=== PATIENT | female | born 1985 | race Caucasian/White ===

== ENCOUNTER 2020-09-01 11:25 | Outpatient (REF) | payer OTHER, SELFPAY ==
[2020-09-01 12:06] LABS: MANUAL DIFF FLAG NO
[2020-09-01 12:12] LABS: Basophils Absolute Auto 0.1 X10*3/uL (0.0-0.2); Basophils Percent Auto 0.8 % (0-2); Eosinophils Absolute Auto 0.3 X10*3/uL (0.0-0.4); Hematocrit 44.2 % (37-47); Hemoglobin 13.6 g/dl (12.0-16.0); Imm Gran Abs Auto 0.02 X10*3/uL (0.00-0.03); Imm Gran Pct Auto 0.3 % (0.0-0.4); Lymphocytes Absolute Auto 2.1 X10*3/uL (1.2-4.9); Lymphocytes Percent Auto 27.7 % (20-40); Mean Corpuscular HGB Conc 30.8 g/dl (31.0-35.0); Mean Corpuscular Hemoglobin 23.9 pg (27.0-33.0); Mean Corpuscular Volume 77.8 fL (80-98); Mean Platelet Volume 11.9 fL (9.4-12.3); Monocytes Absolute Auto 0.7 X10*3/uL (0.1-1.2); Monocytes Percent Auto 8.4 % (2-11); Neutrophils Absolute Auto 4.6 X10*3/uL (2.0-8.3); Neutrophils Percent Auto 58.8 % (45-73); Platelet Count 247 X10*3/uL (160-400); Red Blood Count 5.68 X10*6/uL (4.20-5.50); Red Cell Distribution Width 15.1 % (11.0-16.0); White Blood Count 7.7 X10*3/uL (4.8-10.8)
[2020-09-01 12:41] LABS: Alanine Aminotransferase 8 U/L (0-31); Albumin Level 4.4 g/dL (3.5-5.0); Alkaline Phosphatase 60 U/L (39-117); Anion Gap 14 (12-20); Aspartate Amino Transferase 11 U/L (5-31); Bilirubin Total 0.8 mg/dL (0.0-1.0); Blood Urea Nitrogen 11 mg/dL (9-16); Carbon Dioxide 25 mmol/L (22-29); Chloride 104 mmol/L (96-108); Cholesterol 161 mg/dL; Estimated Glomerular Filt Rate > 60; Glucose Fasting 85 mg/dL (60-99); HDL Cholesterol 33 mg/dL; LDL Cholesterol Calculated 115 mg/dl; Potassium 4.4 mmol/L (3.3-5.1); Sodium 139 mmol/L (135-145); Total Protein 7.4 g/dL (6.5-8.0); Triglycerides 66 mg/dL
[2020-09-01 13:03] LABS: TSH reflex Free T4 0.86 uIU/mL (0.32-4.0)
== END 2020-09-01 11:26 | disposition home or self-care (01) ==
LOC: HO.LAB 11:25
PROVIDERS: PCP Internal Medicine; Visit Provider Nurse Practitioner Family
DX: D64.9 Anemia, unspecified (principal)
CPT/HCPCS: 36415; 80053; 80061; 84443; 85025

== ENCOUNTER 2021-11-10 09:41 | Outpatient (REF) | payer OTHER, SELFPAY ==
[2021-11-10 09:54] LABS: MANUAL DIFF FLAG NO
[2021-11-10 10:11] LABS: Basophils Absolute Auto 0.1 X10*3/uL (0.0-0.2); Basophils Percent Auto 0.9 % (0-2); Eosinophils Absolute Auto 0.4 X10*3/uL (0.0-0.4); Eosinophils Percent Auto 5.4 % (0-4); Hematocrit 44.5 % (37.0-47.0); Imm Gran Abs Auto 0.02 X10*3/uL (0.00-0.03); Imm Gran Pct Auto 0.3 % (0.0-0.4); Lymphocytes Absolute Auto 2.2 X10*3/uL (1.2-4.9); Lymphocytes Percent Auto 33.3 % (20-40); Mean Corpuscular HGB Conc 31.5 g/dl (31.0-35.0); Mean Corpuscular Hemoglobin 24.1 pg (27.0-33.0); Mean Corpuscular Volume 76.7 fL (80.0-98.0); Mean Platelet Volume 11.1 fL (9.4-12.3); Monocytes Absolute Auto 0.6 X10*3/uL (0.1-1.2); Monocytes Percent Auto 9.4 % (2-11); Neutrophils Absolute Auto 3.4 x10*3/uL (2.0-8.3); Neutrophils Percent Auto 50.7 % (45-73); Platelet Count 205 X10*3/uL (160-400); Red Cell Distribution Width 15.2 % (11.0-16.0); White Blood Count 6.6 X10*3/uL (4.8-10.8)
[2021-11-10 10:40] LABS: Alanine Aminotransferase 20 U/L (0-31); Albumin Level 4.2 g/dL (3.5-5.0); Alkaline Phosphatase 58 U/L (39-117); Anion Gap 11 (12-20); Aspartate Amino Transferase 15 U/L (5-31); Bilirubin Total 1.3 mg/dL (0.0-1.0); Blood Urea Nitrogen 13 mg/dL (9-16); Calcium 10.3 mg/dL (8.4-10.2); Carbon Dioxide 26 mmol/L (22-29); Chloride 105 mmol/L (96-108); Cholesterol 166 mg/dL; Estimated Glomerular Filt Rate > 60; Glucose Fasting 88 mg/dL (60-99); HDL Cholesterol 34 mg/dL; Iron 97 mcg/dL (30-160); LDL Cholesterol Calculated 115 mg/dl; Percent Iron Saturation 26 % (15-50); Potassium 4.9 mmol/L (3.3-5.1); Sodium 137 mmol/L (135-145); Total Iron Binding Capacity 367 mcg/dL (228-428); Total Protein 7.4 g/dL (6.5-8.0); Triglycerides 86 mg/dL; Unsaturated Iron Binding 270 ug/dL
== END 2021-11-10 09:42 | disposition home or self-care (01) ==
LOC: HO.LAB 09:41
PROVIDERS: PCP Internal Medicine; Visit Provider Internal Medicine
DX: Z00.00 Encounter for general adult medical examination without abnormal findings (principal); D64.9 Anemia, unspecified
CPT/HCPCS: 36415; 80053; 80061; 83540; 85025

== ENCOUNTER 2022-10-28 08:53 | Outpatient (REF) | payer OTHER, SELFPAY ==
[2022-10-28 09:04] LABS: MANUAL DIFF FLAG NO
[2022-10-28 09:06] LABS: Basophils Absolute Auto 0.1 X10*3/uL (0.0-0.2); Basophils Percent Auto 0.7 % (0-2); Eosinophils Absolute Auto 0.4 X10*3/uL (0.0-0.4); Eosinophils Percent Auto 4.5 % (0-4); Hematocrit 43.5 % (37.0-47.0); Hemoglobin 13.6 g/dl (12.0-16.0); Imm Gran Abs Auto 0.05 X10*3/uL (0.00-0.03); Imm Gran Pct Auto 0.5 % (0.0-0.4); Lymphocytes Absolute Auto 2.8 X10*3/uL (1.2-4.9); Lymphocytes Percent Auto 29.4 % (20-40); Mean Corpuscular HGB Conc 31.3 g/dl (31.0-35.0); Mean Corpuscular Hemoglobin 23.9 pg (27.0-33.0); Mean Corpuscular Volume 76.6 fL (80.0-98.0); Mean Platelet Volume 10.7 fL (9.4-12.3); Monocytes Percent Auto 10.2 % (2-11); Neutrophils Absolute Auto 5.2 x10*3/uL (2.0-8.3); Neutrophils Percent Auto 54.7 % (45-73); Platelet Count 194 X10*3/uL (160-400); Red Blood Count 5.68 X10*6/uL (4.20-5.50); Red Cell Distribution Width 15.2 % (11.0-16.0); White Blood Count 9.6 X10*3/uL (4.8-10.8)
[2022-10-28 09:40] LABS: Alanine Aminotransferase 13 U/L (0-31); Albumin Level 4.1 g/dL (3.5-5.0); Alkaline Phosphatase 55 U/L (39-117); Anion Gap 10 (12-20); Aspartate Amino Transferase 13 U/L (5-31); Bilirubin Total 1.2 mg/dL (0.0-1.0); Blood Urea Nitrogen 10 mg/dL (9-16); Calcium 9.2 mg/dL (8.4-10.2); Carbon Dioxide 27 mmol/L (22-29); Chloride 108 mmol/L (96-108); Cholesterol 164 mg/dL; Estimated Glomerular Filt Rate > 60; Glucose Fasting 91 mg/dL (60-99); HDL Cholesterol 38 mg/dL; LDL Cholesterol Calculated 111 mg/dl; Potassium 4.6 mmol/L (3.3-5.1); Sodium 140 mmol/L (135-145); Total Protein 6.9 g/dL (6.5-8.0); Triglycerides 77 mg/dL
[2022-10-28 10:13] LABS: Folate 15.1 ng/mL (> or = 4.0); Vitamin B12 428 pg/mL (200-900); Vitamin D 25-OH Total 27.3 ng/mL (>30)
[2022-10-30 15:54] LABS: Calcium (PTHI) 9.1 mg/dL (8.6-10.2); PTHI 49 pg/mL (16-77)
== END 2022-10-28 08:54 | disposition home or self-care (01) ==
LOC: HO.LAB 08:53
PROVIDERS: PCP Internal Medicine; Visit Provider Internal Medicine
DX: Z00.00 Encounter for general adult medical examination without abnormal findings (principal); E55.9 Vitamin D deficiency, unspecified; E83.52 Hypercalcemia; D64.9 Anemia, unspecified; E53.8 Deficiency of other specified B group vitamins
CPT/HCPCS: 36415; 80053; 80061; 82306; 82607; 82746; 83970; 85025

== ENCOUNTER 2022-11-09 23:26 | Emergency (ER) | payer OTHER, SELFPAY ==
[2022-11-09 23:35] VITALS: BP 117/71; PULSE 83; RESP 20; TEMP 36.3; O2SAT 100; BMI 34.8
[2022-11-09 23:51] VITALS: BP 122/79; PULSE 79; RESP 16; TEMP 37; O2SAT 100
--- NOTE | 2022-11-09 23:51 | ECG_ITS ---
Test Reason : WEAKNESS Blood Pressure : / mmHG Vent. Rate : 070 BPM Atrial Rate : 070 BPM P-R Int : 154 ms QRS Dur : 084 ms QT Int : 376 ms P-R-T Axes : 032 057 033 degrees QTc Int : 406 ms Sinus rhythm with Premature atrial complexes Otherwise normal ECG When compared to the previous EKG of Premature atrial complexes are now Present Referred By: Generic ED Physician Electronically Signed By:SUSSY SANCHEZ MD
[2022-11-10 00:46] LABS: Basophils Absolute Auto 0.1 X10*3/uL (0.0-0.2); Basophils Percent Auto 0.7 % (0-2); Eosinophils Absolute Auto 0.3 X10*3/uL (0.0-0.4); Eosinophils Percent Auto 2.7 % (0-4); Hematocrit 42.1 % (37.0-47.0); Hemoglobin 13.3 g/dl (12.0-16.0); Imm Gran Abs Auto 0.03 X10*3/uL (0.00-0.03); Imm Gran Pct Auto 0.3 % (0.0-0.4); Lymphocytes Absolute Auto 1.7 X10*3/uL (1.2-4.9); Lymphocytes Percent Auto 16.4 % (20-40); MANUAL DIFF FLAG NO; Mean Corpuscular HGB Conc 31.6 g/dl (31.0-35.0); Mean Corpuscular Hemoglobin 24.1 pg (27.0-33.0); Mean Corpuscular Volume 76.3 fL (80.0-98.0); Mean Platelet Volume 11.7 fL (9.4-12.3); Monocytes Absolute Auto 0.8 X10*3/uL (0.1-1.2); Monocytes Percent Auto 7.8 % (2-11); Neutrophils Absolute Auto 7.6 x10*3/uL (2.0-8.3); Neutrophils Percent Auto 72.1 % (45-73); Platelet Count 222 X10*3/uL (160-400); Red Blood Count 5.52 X10*6/uL (4.20-5.50); Red Cell Distribution Width 14.9 % (11.0-16.0); White Blood Count 10.6 X10*3/uL (4.8-10.8)
[2022-11-10 01:00] LABS: Anion Gap 10 (12-20); Blood Urea Nitrogen 15 mg/dL (9-16); Calcium 9.7 mg/dL (8.4-10.2); Carbon Dioxide 26 mmol/L (22-29); Chloride 107 mmol/L (96-108); Creatinine Clr Calc Pharmacy 102.3; Estimated Glomerular Filt Rate > 60; Glucose Random 77 mg/dL (60-115); Potassium 4.1 mmol/L (3.3-5.1); Sodium 139 mmol/L (135-145)
[2022-11-10 01:10] LABS: Troponin-I High Sensitivity < 2.7 ng/L (<3.5-17.0)
--- NOTE | 2022-11-10 01:25 | ED_ITS ---
HPI - General Adult General Chief complaint: Nausea/Vomiting/Diarrhea Stated complaint: Low Blood Sugar/ Dizziness Time Seen by Provider: 11/10/22 01:14 Source: patient Mode of arrival: ambulatory Limitations: no limitations History of Present Illness HPI narrative: 37-year-old female came in for evaluation for vomiting, headache, dizziness. Patient had a history of similar symptoms since she was age of 17 no clear predisposing factor to trigger patient's symptoms Patient had Feeling dizzy, become anxious, headache then she throw up, patient checked her blood sugar was 77 patient is nondiabetic and that is why patient came to the hospital for further evaluation. Related Data Previous Rx's Medication Instructions Recorded escitalopram oxalate 10 mg tablet 10 mg PO DAILY 90 days #90 tabs 04/07/20 hydroxyzine pamoate 25 mg capsule 25 mg PO Q8H 30 days #90 caps 11/13/20 Allergies Allergy/AdvReac Type Severity Reaction Status Date / Time aspirin [ASPIRIN] Allergy Intermediate THROAT Verified 11/09/22 23:38 CLOSES, RASH ibuprofen [From MOTRIN] Allergy Intermediate THROAT Verified 11/09/22 23:38 CLOSES, RASH mushroom [MUSHROOM] Allergy Intermediate rash Verified 11/09/22 23:38 seafood Allergy Intermediate throat/facial Verified 11/09/22 23:38 swelling-difficulty breathing tramadol Allergy Intermediate Rash Verified 11/09/22 23:38 Review of Systems Review of Systems: All other systems are reviewed and are negative Constitutional: Reports as per HPI and Reports no additional constitutional complaints Eyes: Reports as per HPI and Reports no additional eye complaints Reports system reviewed and no additional complaints, except as documented Cardiovascular: Reports as per HPI and Reports no additional cardiovascular complaints Respiratory: Reports as per HPI and Reports no additional respiratory complaints Gastrointestinal: Reports as per HPI and Reports no additional gastrointestinal complaints Genitourinary: Reports no additional female genitourinary complaints Musculoskeletal: Reports no additional musculoskeletal complaints Skin/Breast: Reports system reviewed and no additional complaints, except as docu Psychiatric: Reports no additional psychiatric complaints Endocrine: Reports no additional endocrine complaints Hematologic/Lymphatic: Reports no additional hematologic/lymphatic complaints Allergic/Immunologic: Reports no additional allergic/immunologic complaints Reports system reviewed and no additional complaints, except as documented and Reports Abnormal speech present PMFSH Past Medical History Medical History Allergic rhinitis Anemia Anxiety and depression Depression with anxiety STEVE (generalized anxiety disorder) Insomnia Mild recurrent major depression Obese Physical exam Surgical History Hx laparoscopic cholecystectomy Previous section Family History Family History Father Arthritis History of bowel disorder Hypertension Asthma Mother Hemorrhoids Hypertension Asthma Maternal Grandfather Asthma Diabetes Paternal Grandmother Asthma Diabetes Fibromyalgia Paternal Aunt Migraine Brother In good health Sister In good health Social History Social History Housing: Apartment Alcohol intake: former Patient Tobacco Use Status: Current everyday Tobacco user Tobacco use type: Cigarette Cigarettes Per Day: 6 e-Cigarette/Vaping Use: Never Used Second Hand Smoke Exposure: No Advance Directives: No Advance Directives Information Provided: No service: No Current occupational status: employed Current occupational exposures/hazards: No Cognitive needs: No Hearing needs: No Vision needs: Yes Physical Exam ED Vital Signs: Vital Signs - 24 hr 11/09/22 23:35 Temperature 97.4 F Pulse Rate 83 Respiratory Rate 20 Blood Pressure 117/71 Pulse Oximetry 100 Oxygen Delivery Method Room Air BMI result Body Mass Index 34.8 Vital signs have been reviewed as appeared to be correct. Blood pressure normal. Heart rate normal. Respiration rate normal. Temperature normal. Oxyg en saturation normal. Appearance: Alert. Oriented X3. No acute distress. Head: Normal external exam. Normocephalic. Atraumatic. No Vang signs noted. No raccoon eyes noted Eyes: PERRLA. EOMI. Conjunctiva and sclera normal. Eyelids normal. ENT: TM's Normal. Pharynx normal. Uvula midline. Moist mucous membranes. No trismus noted. No drooling noted. No muffled voice noted. Neck: Normal inspection. Neck supple. FROM. No adenopathy. Thyroid Normal. No meningeal signs. No neck mass noted. CVS: Normal heart rate and rhythm. Heart sound normal. No murmurs noted. Pulses normal throughout. Respiratory: No respiratory distress. Painless inspiration. Breath sounds nor mal. No wheezes/rales/rhonchi noted. Chest nontender. No accessory muscle usage noted or decreased air movement noted. Abdomen: Soft and nontender. Bowel sounds normal in all 4 quadrants. No distent ion noted. No organomegaly noted. No visible injury noted. Back: No CVA tenderness. Full range of motion noted. Skin: Skin warm and dry. Normal skin color. Normal skin turgor. No rashes/lesions/lacerations noted. Extremities: No lower extremity edema. Extremities exhibit normal range of mot ion. Extremities nontender. Neuro: Oriented X 3. Cranial nerve exam: II-XII are grossly intact No motor deficit. No sensory deficit. Reflexes normal. Course Course Course Narrative: 37-year-old female came in after having vomiting and hypoglycemia at home, patient now feels better, no headache, no dizziness, no nausea, no vomiting, able to tolerate any p.o. intake in the emergency department. Medical Decision Making Differential Diagnosis Differential Diagnoses: The differential diagnosis associated with the presentation includes (Vomiting, gastritis, food poisoning, gastroenteritis, dehydration, hypoglycemia, electrolyte abnormalities, dehydration.) Admission/Observation Consideration of admission/observation: Escalation of care including admissio n/observation considered Lab Data MDM Lab Attestation statement: I reviewed the patient's lab results. 11/10/22 00:40 11/10/22 00:40 Labs: Lab Results 11/10/22 11/10/22 11/10/22 Range/Units 00:40 00:40 00:40 WBC 10.6 (4.8-10.8) X10*3/uL RBC 5.52 H (4.20-5.50) X10*6/uL Hgb 13.3 (12.0-16.0) g/dl Hct 42.1 (37.0-47.0) % MCV 76.3 L (80.0-98.0) fL MCH 24.1 L (27.0-33.0) pg MCHC 31.6 (31.0-35.0) g/dl RDW 14.9 (11.0-16.0) % Plt Count 222 (160-400) X10*3/uL MPV 11.7 (9.4-12.3) fL Immature Gran % (Auto) 0.3 (0.0-0.4) % Neut % (Auto) 72.1 (45-73) % Lymph % (Auto) 16.4 L (20-40) % [place] % (Auto) 7.8 (2-11) % Eos % (Auto) 2.7 (0-4) % Baso % (Auto) 0.7 (0-2) % Lymph # (Auto) 1.7 (1.2-4.9) X10*3/uL [place] # (Auto) 0.8 (0.1-1.2) X10*3/uL Eos # (Auto) 0.3 (0.0-0.4) X10*3/uL Baso # (Auto) 0.1 (0.0-0.2) X10*3/uL Abs Immat Gran (auto) 0.03 (0.00-0.03) X10*3/uL Absolute Neuts (auto) 7.6 (2.0-8.3) x10*3/uL Absolute Nucleated RBC 0.000 (0.0-0.012) X10*3/uL Nucleated RBC % (auto) 0.0 (0.0-0.2) /100WBC Sodium 139 (135-145) mmol/L Potassium 4.1 (3.3-5.1) mmol/L Chloride 107 (96-108) mmol/L Carbon Dioxide 26 (22-29) mmol/L Anion Gap 10 L (12-20) BUN 15 (9-16) mg/dL Creatinine 0.79 (0.5-1.4) mg/dL Estim Creat Clear Calc 102.3 Estimated GFR > 60 Random Glucose 77 (60-115) mg/dL Calcium 9.7 (8.4-10.2) mg/dL Troponin I High Sens < 2.7 (<3.5-17.0) ng/L Discharge Plan Discharge Clinical Impression: Anxiety, Vomiting Patient Disposition: Home, Self-Care Instructions: Anxiety (ED) Prescriptions: No Action escitalopram oxalate 10 mg tablet 10 mg PO DAILY 90 Days Qty: 90 3RF hydroxyzine pamoate 25 mg capsule 25 mg PO Q8H 30 Days Qty: 90 2RF Referrals: Ellie Palma MD [Primary Care Provider] -
[2022-11-10 01:49] LABS: HCG Quantitative < 2 mIU/mL
[2022-11-10 06:45] LABS: Glucose, Whole Blood 101 mg/dL (60-115)
== END 2022-11-10 03:01 | disposition home or self-care (01) ==
PROVIDERS: Emergency Provider Emergency Medicine; PCP Internal Medicine
DX: F41.9 Anxiety disorder, unspecified (principal); R11.10 Vomiting, unspecified
CPT/HCPCS: 36415; 80048; 82947; 84484; 84702; 85025; 93005; 99284; 99285

== ENCOUNTER 2023-08-09 13:12 | Outpatient (AMB) | payer OTHER, SELFPAY ==
[2023-08-09 13:14] VITALS: BP 130/80; BMI 31.0
--- NOTE | 2023-08-09 13:14 | A.OFFPC_ITS ---
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 Accompanied by: Self / Same As Patient Allergies aspirin [ASPIRIN] Allergy (Intermediate, Verified 08/09/23 13:28) THROAT CLOSES, RASH ibuprofen [From MOTRIN] Allergy (Intermediate, Verified 08/09/23 13:28) THROAT CLOSES, RASH mushroom [MUSHROOM] Allergy (Intermediate, Verified 08/09/23 13:28) rash seafood Allergy (Intermediate, Verified 08/09/23 13:28) throat/facial swelling-difficulty breathing tramadol Allergy (Intermediate, Verified 08/09/23 13:28) Rash Medication List - Last Reconciled 08/09/23 by Ellie Desouza MD hydroxyzine pamoate 25 mg PO Q8H 30 days Tobacco use date assessed: 08/09/23 Dental Screening Dental Screen Date: 08/09/23 Did you have a dental visit in the last 12 months?: No Did you have a dental problem in the last 6 months where you did not have access to dental care?: No Was dental information given to patient?: Patient has dentist HPI HPI Comments History of Present Illness Details This is a 37-year-old female with mild recurrent major depression, anxiety and obesity that comes today complaining of blurry vision that has been present for about 6 weeks in which her vision is blurry and after 18:00 she gets blind. Anxiety stable with hydroxyzine as needed. Depression is in remission. She is obese with a BMI of 31 and was advised to diet and exercise to reach BMI goal less than 30. [facility] Medical History (Updated 08/09/23 @ 13:32 by Ellie Desouza MD) STEVE (generalized anxiety disorder) Mild recurrent major depression Physical exam Anxiety and depression Anemia Obese Allergic rhinitis Insomnia Depression with anxiety Surgical History Hx laparoscopic cholecystectomy Previous section Family History Father Arthritis History of bowel disorder Hypertension Asthma Mother Hemorrhoids Hypertension Asthma Maternal Grandfather Asthma Diabetes Paternal Grandmother Asthma Diabetes Fibromyalgia Paternal Aunt Migraine Brother In good health Sister In good health Social History Housing: Apartment Alcohol intake: never Patient Tobacco Use Status: Current everyday Tobacco user Tobacco use type: Cigarette Cigarettes Per Day: 6 e-Cigarette/Vaping Use: Never Used Second Hand Smoke Exposure: No service: No Current occupational status: employed Current occupational exposures/hazards: No Cognitive needs: No Hearing needs: No Vision needs: Yes Questionnaire Thrive Questionnaire Date Thrive assessed: 06/21/22 STEVE-7 AMB Questionnaire STEVE-7 Date STEVE - 7 assessed: 11/02/22 Source: Developed by Drs. Reynaldo Rolon, Dianelys Lopez, Denzel Ramirez and colleagues, with an educational williams from [employer]. Review of Systems Const All systems reviewed & are unremarkable except as noted in HPI and below Eyes Reports no additional complaints, Denies change in vision and Denies other visual disturbances Card Denies chest pain at rest, Denies chest pain with activity, Denies edema, Denies irregular heart rhythm, Denies claudication, Denies dyspnea, Denies dyspnea on exertion, Denies orthopnea, Denies paroxysmal nocturnal dyspnea and Denies slow heart rate Resp Denies cough, Denies dyspnea and Denies dyspnea on exertion GI Denies abdominal pain, Denies change in bowel habits, Denies excessive flatus, Denies nausea and Denies vomiting Denies urinary incontinence, Denies urinary hesitancy and Denies urinary urgency Musc Denies abnormal gait, Denies atrophy, Denies deformity and Denies limited range of motion Skin/Breast Denies bleeding lesions, Denies changing lesions and Denies rash Neuro Denies abnormal gait, Denies behavioral changes and Denies lack of coordination Psych Denies behavioral changes Physical exam (Primary Care) Vital Signs: Last Vital Signs BP 130/80 08/09/23 13:14 BMI result Body Mass Index 31.0 Tobacco/Smoking Status: Tobacco use Status Tobacco use date assessed 08/09/23 08/09/23 13:23 Patient Tobacco Use Status Current everyday Tobacco 08/09/23 13:23 Tobacco use type Cigarette 08/09/23 13:23 e-Cigarette/Vaping Use Never Used 08/09/23 13:23 Thrive Assessment: Date of Thrive Assessment Date Thrive assessed 06/21/22 08/09/23 13:23 Eyes General: appearance normal, both eyes and all related structures Eyelids: Yes eyelids normal Conjunctivae: conjunctivae normal Neck Neck: Yes normal visual inspection and Yes supple Resp Effort & Inspection: normal respiratory effort Auscultation: clear to auscultation bilaterally Cardio Jugular venous distension: no JVD Rate: regular rate Rhythm: regular rhythm Heart sounds: S1 normal heart sound present and S2 normal heart sound present Extrem General: Yes full ROM Psych Appearance: grossly normal Assessment and Plan Assessment & Plan (1) Mild recurrent major depression: Code(s): F33.0 - Major depressive disorder, recurrent, mild Plan: In remission. (2) STEVE (generalized anxiety disorder): Code(s): F41.1 - Generalized anxiety disorder Plan: Continue hydroxyzine as needed. (3) Obese: Code(s): E66.9 - Obesity, unspecified Qualifiers: Obesity type: due to excess calories Obesity classification: adult class 1 (BMI 30 - 34.9) Serious obesity comorbidity presence: without serious comorbidity Body mass index: BMI 34.0-34.9 Qualified Code(s): E66.09 - Other obesity due to excess calories; Z68.34 - Body mass index [BMI] 34.0-34.9, adult Plan: Start diet and exercise. BMI goal is less than 30. (4) Blurry vision: Code(s): H53.8 - Other visual disturbances Plan: Referred to Ophthalmology. Orders: Referrals Ophthalmology Referral H53.8 - Other visual disturbances Coding Level of Care Code Est Pt Level 4 (31495) Diagnoses Mild recurrent major depression F33.0 STEVE (generalized anxiety disorder) F41.1 Class 1 obesity due to excess calories without serious comorbidity with body mass index (BMI) of 34.0 to 34.9 in adult E66.09; Z68.34 Obesity type: due to excess calories Obesity classification: adult class 1 (BMI 30 - 34.9) Serious obesity comorbidity presence: without serious comorbidity Body mass index: BMI 34.0-34.9 Blurry vision H53.8 Time Spent (min) 21
== END 2023-08-09 13:38 | disposition home or self-care (01) ==
PROVIDERS: PCP Internal Medicine; Visit Provider Internal Medicine
DX: H53.8 Other visual disturbances (principal); F33.0 Major depressive disorder, recurrent, mild; E66.09 Other obesity due to excess calories; Z68.34 Body mass index [BMI] 34.0-34.9, adult
CPT/HCPCS: 99214

== ENCOUNTER 2023-11-21 12:43 | Emergency (ER) | payer OTHER, SELFPAY ==
--- NOTE | ~2023-11-21 | XR_ITS ---
EXAMINATION: XR ELBOW, LEFT CLINICAL INFORMATION: Left elbow pain. Laceration. Status post fall. COMPARISON: None available. TECHNIQUE: AP, lateral, and oblique views of the left elbow. FINDINGS: Bone mineralization is normal. No fracture or malalignment. Joint spaces well-preserved. No appreciable effusion. Skin wound is suspected at the dorsal margin of the olecranon. No subcutaneous gas or radiodense foreign bodies. XR/XR elbow LT min 3V IMPRESSION: 1. No acute osseous findings at the left elbow. 2. Skin wound at the dorsal margin of the olecranon. No subcutaneous gas or radiodense foreign bodies.
[2023-11-21 13:37] VITALS: BP 116/73; PULSE 78; RESP 16; TEMP 36.7; O2SAT 98; BMI 29.2
--- NOTE | 2023-11-21 13:37 | ED.GENADULT ---
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 Tetanus up-to-date. Denies injury to other area. Denies numbness, tingling Related Data Previous Rx's ?Medication ?Instructions ?Recorded hydroxyzine pamoate 25 mg capsule 25 mg PO Q8H 30 days #90 caps 11/13/20 Allergies Allergy/AdvReac Type Severity Reaction Status Date / Time aspirin [ASPIRIN] Allergy Intermediate THROAT Verified 11/21/23 13:37 CLOSES, RASH ibuprofen [From MOTRIN] Allergy Intermediate THROAT Verified 11/21/23 13:37 CLOSES, RASH mushroom [MUSHROOM] Allergy Intermediate rash Verified 11/21/23 13:37 seafood Allergy Intermediate throat/facial Verified 11/21/23 13:37 swelling-difficulty breathing tramadol Allergy Intermediate Rash Verified 11/21/23 13:37 Review of Systems Review of Systems: Constitutional: No Fever, No Chills ENT/Mouth: No Ear Pain, No Nasal Congestion, No sore throat, No Rhinorrhea, No Swallowing Difficulty Cardiovascular: No Chest Pain, No SOB Respiratory: No Cough Gastrointestinal: No Nausea, No Vomiting, No Abdominal pain Musculoskeletal: + joint pain, No Myalgias, No Joint Swelling Skin: +Skin Lesions, No rash Neuro: No Weakness, No Numbness, No Paresthesias Yes all other systems are reviewed and are negative Constitutional: Constitutional: Reports as per [facility] Past Medical History Attestation statement: The following information was validated with the patient. Source: old records reviewed Medical History STEVE (generalized anxiety disorder) Mild recurrent major depression Physical exam Anxiety and depression Anemia Obese Allergic rhinitis Insomnia Depression with anxiety Surgical History Hx laparoscopic cholecystectomy Previous section Family History Family History Father Arthritis History of bowel disorder Hypertension Asthma Mother Hemorrhoids Hypertension Asthma Maternal Grandfather Asthma Diabetes Paternal Grandmother Asthma Diabetes Fibromyalgia Paternal Aunt Migraine Brother In good health Sister In good health Social History Social History Housing: Apartment Alcohol intake: never Patient Tobacco Use Status: Current everyday Tobacco user Tobacco use type: Cigarette Cigarettes Per Day: 6 e-Cigarette/Vaping Use: Never Used Second Hand Smoke Exposure: No Advance Directives: No Advance Directives Information Provided: No service: No Current occupational status: employed Current occupational exposures/hazards: No Cognitive needs: No Hearing needs: No Vision needs: Yes Physical Exam ED Vital Signs: Vital Signs - 24 hr 11/21/23 13:37 11/21/23 16:00 Temperature 98.1 F 98.8 F Pulse Rate 78 85 Respiratory Rate 16 Blood Pressure 116/73 116/81 Pulse Oximetry 98 100 Oxygen Delivery Method Room Air Room Air BMI result Body Mass Index 29.2 Const General: cooperative, healthy appearing and no acute distress Orientation/consciousness: patient oriented x3 Limitations: no limitations HENMT Head: Yes normal to inspection and Yes atraumatic Ears: hearing grossly normal bilaterally General nose exam: Normal external nose present Face and sinus: Yes normal facial exam Eyes General: appearance normal, both eyes and all related structures EOM: EOMs intact bilaterally Neck Neck: Yes normal visual inspection and Yes no meningeal signs Resp Effort & Inspection: normal respiratory effort and no respiratory distress Cardio Rate: regular rate General: Yes no CVA tenderness Back/Spine/Pelvis Back: no CVA tenderness Skin Rashes: no rashes Wounds: no wounds Neuro General: patient oriented x3, tone normal and no meningeal signs Cranial nerves: Yes CN's II-XII intact bilaterally Gait exam (Neuro): Normal gait present Extrem Other: Left elbow mildly tender to palpation. No erythema/warmth or ecchymosis. 2 small superficial lacerations noted to left elbow measuring 1.5 cm and 1 cm. Bleeding controlled. Full flexion limited secondary to pain. Pronation and supination intact. Neurovascular intact distally Course Course Course Narrative: This is a rapid medical exam performed by Adan Gardiner NP: Additional HPI, ROS, PE not included below will be deferred to primary provider. Patient is a 38-year-old female presenting to the ED with complaint of laceration to left elbow. Was cleaning her house and struck elbow on something while moving her arm. Tdap up to date. 2cm laceration over olecranon. Plan: xray, needs sutures XR elbow LT min 3V IMPRESSION: 1. No acute osseous findings at the left elbow. 2. Skin wound at the dorsal margin of the olecranon. No subcutaneous gas or radiodense foreign bodies. Results discussed with patient including worrisome signs and symptoms and strict return precautions, and when to return to the emergency department. They verbalized understanding and feel safe for discharge at this time. Medications Administered Discontinued Medications Generic Name Dose Route Start Last Admin Trade Name Freq PRN Reason Stop Dose Admin Lidocaine HCl 5 ml 11/21/23 16:57 11/21/23 17:06 Lidocaine Hcl 1 % Mpf 5 Ml Vial INFILTRATI 11/21/23 16:58 5 ml ONCE ONE Administration Procedures Laceration Laceration 1: Site: upper extremity (Left elbow) Size (cm): 1.5 Description: linear and irregular Depth: simple, single layer Local Anesthetic: lidocaine 1% Amount of anesthesia used (mL): 1 Pre-repair: wound explored Skin layer closed with: nylon Size (cm): 3-0 Number of sutures: 3 Technique: simple, interrupted Laceration 2: Site: upper extremity (Left elbow) Size (cm): 1 Description: linear Depth: simple, single layer Local Anesthetic: lidocaine 1% Amount of anesthesia used (mL): 0.5 Pre-repair: wound explored Skin layer closed with: nylon Size (cm): 3-0 Number of sutures: 1 Technique: simple, interrupted Medical Decision Making Medical Decision Making MDM Narrative: 38-year-old female with past medical history of anemia, insomnia, depression, anxiety, presenting to the ED complaining of laceration to left elbow s/p hitting on coffee mug while cleaning house [employer]. On exam vital signs stable, NAD, nontoxic appearing, physical exam as noted above. Concern for fracture and laceration various contusion. Low suspicion for dislocation. No evidence of retained foreign body or cellulitis Plan: X-ray, suture wound Please refer to course for remaining clinical decision making, interpretation of labs/imaging results, and discussions with consultants and/or family members. Differential Diagnosis Differential Diagnoses: The differential diagnosis associated with the presentation includes As above Radiology Impression Discussion of test interpretation with radiology: I have reviewed the radiologist's reading. External Record Review External record reviewed: Inpatient record, Office record, Outpatient record, Prior outpatient labs, Prior outpatient radiology, Primary care record and Outside ED record Tests considered The following testing was considered but not selected: As above Prescription Management I considered prescription management with: Antibiotic (Not needed at this time) Discharge Plan Discharge Clinical Impression: Laceration Patient Disposition: Home, Self-Care Instructions: Laceration (DC) Additional Instructions: Your wounds were repaired today in the emergency department. Keep dry and clean. You need to return to any emergency department, urgent care, or your PCPs office in 7-10 days for suture removal Apply bacitracin and or Neosporin daily Once sutures are removed apply anti scar cream like Mederma If area begins look infected, is red, there is drainage, streaking, or you have fever please return to the emergency department Prescriptions: No Action hydroxyzine pamoate 25 mg capsule 25 mg PO Q8H 30 Days Qty: 90 2RF Referrals: ED Physician,Generic [Physician] - 1 week (For suture removal) Ellie Palma MD [Primary Care Provider] - Print Language: [place] Islander
[2023-11-21 16:00] VITALS: BP 116/81; PULSE 85; TEMP 37.1; O2SAT 100
[2023-11-21] MEDS: Lidocaine HCl 1 % MPF 5 ML VIAL INFILTRATI (17:06)
[2023-11-21 18:00] VITALS: BP 97/61; PULSE 71; TEMP 36.5; O2SAT 100
[2023-11-21 18:35] VITALS: BP 97/61; PULSE 71; RESP 18; TEMP 36.5; O2SAT 100
== END 2023-11-21 18:36 | disposition home or self-care (01) ==
PROVIDERS: Emergency Provider Internal Medicine; PCP Internal Medicine
DX: S51.012A Laceration without foreign body of left elbow, initial encounter (principal); W22.8XXA Striking against or struck by other objects, initial encounter; Y93.89 Activity, other specified; Y92.9 Unspecified place or not applicable; Y99.9 Unspecified external cause status
CPT/HCPCS: 12001; 73080; 99283; 99284

== ENCOUNTER 2023-11-28 14:18 | Outpatient (AMB) | payer OTHER, SELFPAY ==
--- NOTE | 2023-11-28 14:20 | MHC.PC.OV ---
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 Accompanied by: Self / Same As Patient Allergies aspirin [ASPIRIN] Allergy (Intermediate, Verified 11/28/23 14:34) THROAT CLOSES, RASH ibuprofen [From MOTRIN] Allergy (Intermediate, Verified 11/28/23 14:34) THROAT CLOSES, RASH mushroom [MUSHROOM] Allergy (Intermediate, Verified 11/28/23 14:34) rash seafood Allergy (Intermediate, Verified 11/28/23 14:34) throat/facial swelling-difficulty breathing tramadol Allergy (Intermediate, Verified 11/28/23 14:34) Rash Medication List - Last Reconciled 11/28/23 by Ellie Desouza MD bacitracin 1 appl topical BID hydroxyzine pamoate 25 mg PO Q8H 30 days Tobacco use date assessed: 08/09/23 Dental Screening Dental Screen Date: 08/09/23 HPI HPI Comments History of Present Illness Details This is a 38-year-old female with mild major depression in remission and anxiety that comes today for suture removal. She had a glass cup that broke in her left elbow and went to ER due to this matter. Had 4 sutures that were successfully removed today. Anxiety well controlled with hydroxyzine as needed. She has a smoker and was advised to quit. Declines nicotine patch. [facility] Medical History STEVE (generalized anxiety disorder) Mild recurrent major depression Physical exam Anxiety and depression Anemia Obese Allergic rhinitis Insomnia Depression with anxiety Surgical History Hx laparoscopic cholecystectomy Previous section Family History Father Arthritis History of bowel disorder Hypertension Asthma Mother Hemorrhoids Hypertension Asthma Maternal Grandfather Asthma Diabetes Paternal Grandmother Asthma Diabetes Fibromyalgia Paternal Aunt Migraine Brother In good health Sister In good health Social History Housing: Apartment Alcohol intake: never Patient Tobacco Use Status: Current everyday Tobacco user Tobacco use type: Cigarette Cigarettes Per Day: 6 e-Cigarette/Vaping Use: Never Used Second Hand Smoke Exposure: No service: No Current occupational status: employed Current occupational exposures/hazards: No Cognitive needs: No Hearing needs: No Vision needs: Yes Questionnaire Thrive Questionnaire Date Thrive assessed: 06/21/22 STEVE-7 AMB Questionnaire STEVE-7 Date STEVE - 7 assessed: 11/02/22 Source: Developed by Drs. Reynaldo Rolon, Dianelys Lopez, Denzel Ramirez and colleagues, with an educational williams from [employer]. Review of Systems Card Denies chest pain at rest, Denies chest pain with activity, Denies edema, Denies irregular heart rhythm, Denies claudication, Denies dyspnea, Denies dyspnea on exertion, Denies orthopnea, Denies paroxysmal nocturnal dyspnea and Denies slow heart rate Resp Denies cough, Denies dyspnea and Denies dyspnea on exertion Physical exam (Primary Care) Vital Signs: Last Vital Signs BP 112/70 11/28/23 14:22 BMI result Body Mass Index 29.8 Tobacco/Smoking Status: Tobacco use Status Tobacco use date assessed 08/09/23 11/28/23 14:22 Patient Tobacco Use Status Current everyday Tobacco 11/28/23 14:22 Tobacco use type Cigarette 11/28/23 14:22 e-Cigarette/Vaping Use Never Used 11/28/23 14:22 Are you ready to quit: No Tobacco cessation counseling provided: Yes Items discussed: Nicotine replacement and QuitWorks Relapse Prevention: discussed the importance of a supportive environment, discussed negative mood or depression after quitting, weight gain after smoking is common and discussed dietary, exercise and/or lifestyle changes Number of minutes spent counselin CPT code: Less than 3 minutes Thrive Assessment: Date of Thrive Assessment Date Thrive assessed 06/21/22 11/28/23 14:22 Extrem General: Yes full ROM Assessment and Plan Assessment & Plan (1) Visit for suture removal: Code(s): Z48.02 - Encounter for removal of sutures Plan: 4 sutures succesfully removed in left elbow (2) Mild recurrent major depression: Code(s): F33.0 - Major depressive disorder, recurrent, mild Plan: In remission. (3) STEVE (generalized anxiety disorder): Code(s): F41.1 - Generalized anxiety disorder Plan: Continue hydroxyzine as needed. Coding Level of Care Code Est Pt Level 3 (17969) Complex EM visit Add On G2211 Diagnoses Visit for suture removal Z48.02 Mild recurrent major depression F33.0 STEVE (generalized anxiety disorder) F41.1 Time Spent (min) 18
[2023-11-28 14:22] VITALS: BP 112/70; BMI 29.8
== END 2023-11-28 14:48 | disposition home or self-care (01) ==
PROVIDERS: PCP Internal Medicine; Visit Provider Internal Medicine
DX: F33.0 Major depressive disorder, recurrent, mild (principal); Z48.02 Encounter for removal of sutures; F41.1 Generalized anxiety disorder
CPT/HCPCS: 15853; 99213; G2211

== ENCOUNTER 2023-12-17 12:37 | Outpatient (REF) | payer OTHER, SELFPAY ==
[2023-12-17 12:59] LABS: MANUAL DIFF FLAG NO
[2023-12-17 14:49] LABS: Basophils Absolute Auto 0.1 X10*3/uL (0.0-0.2); Basophils Percent Auto 0.8 % (0-2); Eosinophils Absolute Auto 0.2 X10*3/uL (0.0-0.4); Eosinophils Percent Auto 2.1 % (0-4); Hematocrit 42.6 % (37.0-47.0); Hemoglobin 13.6 g/dl (12.0-16.0); Imm Gran Abs Auto 0.08 X10*3/uL (0.00-0.03); Imm Gran Pct Auto 0.9 % (0.0-0.4); Lymphocytes Absolute Auto 2.4 X10*3/uL (1.2-4.9); Lymphocytes Percent Auto 26.2 % (20-40); Mean Corpuscular HGB Conc 31.9 g/dl (31.0-35.0); Mean Corpuscular Hemoglobin 24.7 pg (27.0-33.0); Mean Corpuscular Volume 77.5 fL (80.0-98.0); Mean Platelet Volume 12.3 fL (9.4-12.3); Monocytes Absolute Auto 0.8 X10*3/uL (0.1-1.2); Monocytes Percent Auto 9.3 % (2-11); Neutrophils Absolute Auto 5.5 x10*3/uL (2.0-8.3); Neutrophils Percent Auto 60.7 % (45-73); Platelet Count 225 X10*3/uL (160-400); Red Cell Distribution Width 15.1 % (11.0-16.0); White Blood Count 9.1 X10*3/uL (4.8-10.8)
[2023-12-17 15:12] LABS: Alanine Aminotransferase 10 U/L (0-31); Albumin Level 4.3 g/dL (3.5-5.0); Alkaline Phosphatase 59 U/L (39-117); Anion Gap 11 (12-20); Aspartate Amino Transferase 11 U/L (5-31); Bilirubin Total 1.1 mg/dL (0.0-1.0); Blood Urea Nitrogen 12 mg/dL (9-16); Calcium 9.6 mg/dL (8.4-10.2); Carbon Dioxide 27 mmol/L (22-29); Chloride 106 mmol/L (96-108); Cholesterol 157 mg/dL (<200); Estimated Glomerular Filt Rate > 60; Glucose Fasting 74 mg/dL (60-99); HDL Cholesterol 37 mg/dL (>40); Iron 90 mcg/dL (30-160); LDL Cholesterol Calculated 111 mg/dL (<100); Percent Iron Saturation 31 % (15-50); Potassium 3.7 mmol/L (3.3-5.1); Sodium 140 mmol/L (135-145); Total Iron Binding Capacity 295 mcg/dL (228-428); Total Protein 7.4 g/dL (6.5-8.0); Triglycerides 48 mg/dL (<150); Unsaturated Iron Binding 205 ug/dL
== END 2023-12-17 12:38 | disposition home or self-care (01) ==
LOC: HO.LAB 12:37
PROVIDERS: PCP Internal Medicine; Visit Provider Internal Medicine
DX: Z00.00 Encounter for general adult medical examination without abnormal findings (principal); E78.5 Hyperlipidemia, unspecified; D64.9 Anemia, unspecified; E83.52 Hypercalcemia
CPT/HCPCS: 36415; 80053; 80061; 83540; 85025

== ENCOUNTER 2023-12-18 13:36 | Outpatient (AMB) | payer OTHER, SELFPAY ==
[2023-12-18 13:41] VITALS: BP 98/62; PULSE 82; O2SAT 97; BMI 29.1
--- NOTE | 2023-12-18 13:41 | MHC.PC.OV ---
Vital Signs 12/18/23 13:41 Height 5 ft 3 in Weight 164 lb 8 oz BMI 29.1 BP 98/62 Blood Pressure Location Lt brachial Position Sitting Pulse 82 Pulse Source Pulse Oximeter Pulse Oximetry (%) 97 Oxygen Delivery Method Room Air Intake Visit Reasons: pe Intake Note: Patient is here today for a physical. 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 Accompanied by: Self / Same As Patient Allergies aspirin [ASPIRIN] Allergy (Intermediate, Verified 12/18/23 14:06) THROAT CLOSES, RASH ibuprofen [From MOTRIN] Allergy (Intermediate, Verified 12/18/23 14:06) THROAT CLOSES, RASH mushroom [MUSHROOM] Allergy (Intermediate, Verified 12/18/23 14:06) rash seafood Allergy (Intermediate, Verified 12/18/23 14:06) throat/facial swelling-difficulty breathing tramadol Allergy (Intermediate, Verified 12/18/23 14:06) Rash Medication List - Last Reconciled 12/18/23 by Ellie Desouza MD bacitracin 1 appl topical BID hydroxyzine pamoate 25 mg PO Q8H 30 days Tobacco use date assessed: 08/09/23 Dental Screening Dental Screen Date: 08/09/23 HPI HPI Comments History of Present Illness Details This is a 38-year-old female with mild recurrent major depression that comes for her physical exam. Depression has been in remission. Last Pap smear was over 4 years ago and will be referred to OBGYN. No acute complaints. [facility] Medical History (Updated 12/18/23 @ 14:09 by Ellie Desouza MD) STEVE (generalized anxiety disorder) Mild recurrent major depression Physical exam Anxiety and depression Anemia Obese Allergic rhinitis Insomnia Depression with anxiety Surgical History Hx laparoscopic cholecystectomy Previous section Family History Father Arthritis History of bowel disorder Hypertension Asthma Mother Hemorrhoids Hypertension Asthma Maternal Grandfather Asthma Diabetes Paternal Grandmother Asthma Diabetes Fibromyalgia Paternal Aunt Migraine Brother In good health Sister In good health Social History Housing: Apartment Alcohol intake: never Patient Tobacco Use Status: Current everyday Tobacco user Tobacco use type: Cigarette Cigarettes Per Day: 6 e-Cigarette/Vaping Use: Never Used Second Hand Smoke Exposure: No service: No Current occupational status: employed Current occupational exposures/hazards: No Cognitive needs: No Hearing needs: No Vision needs: Yes Questionnaire PHQ-9 Over the last 2 weeks, how often have you been bothered by any of the following problems? 1. Little interest or pleasure in doing things: not at all 2. Feeling down, depressed, or hopeless: not at all 3. Trouble falling or staying asleep, or sleeping too much: not at all 4. Feeling tired or having little energy: not at all 5. Poor appetite or overeating: not at all 6. Feeling bad about yourself - or that you are a failure or have let yourself or your family down: not at all 7. Trouble concentrating on things, such as reading the newspaper or watching television: not at all 8. Moving or speaking so slowly that other people could have noticed. Or the opposite - being so fidgety or restless that you have been moving around a lot more than usual: not at all 9. Thoughts that you would be better off or of hurting yourself in some way: not at all Total score: 0 Depression Screening Interpretation: Negative Depression Screening Done: Yes 53049 - PHQ-9 Billing: Yes Source: Developed by Drs. Reynaldo Rolon, Dianelys Lopez, Denzel Ramirez and colleagues, with an educational williams from [employer]. Thrive Questionnaire Date Thrive assessed: 12/18/23 I am a: Patient What is your living situation today?: I have a steady place to live Within the past 12 months, did the food you bought not last and you didn't have the money to get more?: Never true Within the past 12 months, did you worry whether your food would run out before you got money to buy more?: Never true Do you have trouble paying for medicines?: No Do you have trouble getting transportation to medical appointments?: No Do you have trouble paying your heating and electricity bill?: No Do you have trouble taking care of your child, family member or friend?: No Do you have trouble with day-to-day activities such as bathing, preparing meals, shopping, managing finances, etc.?: No Are you currently unemployed and looking for a job?: No Are you interested in more education?: No Please select the resources that you would like help with: None Currently or been in a relationship where the following occur: No concerns reported THRIVE Score: 0 AUDIT C Alcohol Use Questionnaire (AUDIT-C) 1. How often do you have a drink containing alcohol?: Never 3. How often do you have six or more drinks on one occasion?: Never Total Score: 0 STEVE-7 AMB Questionnaire STEVE-7 Date STEVE - 7 assessed: 12/18/23 Feeling nervous, anxious, or on edge: 0 = Not at all Not being able to stop or control worryin = Not at all Worrying too much about different things: 0 = Not at all Trouble relaxin = Not at all Being so restless that it is hard to sit still: 0 = Not at all Becoming easily annoyed or irritable: 0 = Not at all Feeling afraid as if something awful might happen: 0 = Not at all Total STEVE-7 score (0-4 normal; 5-9 mild; 10-14 moderate; 15-21 severe): 0 Source: Developed by Drs. Reynaldo Rolon, Dianelys Lopez, Denzel Ramirez and colleagues, with an educational williams from [employer]. STEVE-7 Assessment Billing STEVE-7 Assessment Tool: STEVE-7 Assessment 46407 Review of Systems Const All systems reviewed & are unremarkable except as noted in HPI and below Card Denies chest pain at rest, Denies chest pain with activity, Denies edema, Denies irregular heart rhythm, Denies claudication, Denies dyspnea, Denies dyspnea on exertion, Denies orthopnea, Denies paroxysmal nocturnal dyspnea and Denies slow heart rate Resp Denies cough, Denies dyspnea and Denies dyspnea on exertion GI Denies abdominal pain, Denies change in bowel habits, Denies excessive flatus, Denies nausea and Denies vomiting Neuro Denies lack of coordination Physical exam (Primary Care) Vital Signs: Last Vital Signs Pulse 82 12/18/23 13:41 BP 98/62 12/18/23 13:41 Pulse Ox 97 12/18/23 13:41 Oxygen Delivery Method Room Air 12/18/23 13:41 BMI result Body Mass Index 29.1 Tobacco/Smoking Status: Tobacco use Status Tobacco use date assessed 08/09/23 12/18/23 13:41 Patient Tobacco Use Status Current everyday Tobacco 12/18/23 13:41 Tobacco use type Cigarette 12/18/23 13:41 e-Cigarette/Vaping Use Never Used 12/18/23 13:41 PHQ-9: PHQ-9 Score PHQ-9: Total score 0 12/18/23 14:09 Depression Screening Interpretation: Negative Thrive Assessment: Date of Thrive Assessment Date Thrive assessed 12/18/23 12/18/23 13:58 Currently or been in a relationship where the following occur: No concerns reported Const Orientation/consciousness: patient oriented x3 HENMT Head: Yes normal to inspection, Yes normocephalic and Yes atraumatic Ears: external ears normal Eyes General: appearance normal, both eyes and all related structures Eyelids: Yes eyelids normal Conjunctivae: conjunctivae normal Neck Neck: Yes normal visual inspection and Yes supple Resp Effort & Inspection: normal respiratory effort Auscultation: clear to auscultation bilaterally Cardio Jugular venous distension: no JVD Rate: regular rate Rhythm: regular rhythm Heart sounds: S1 normal heart sound present and S2 normal heart sound present GI Inspection: Yes normal to inspection Palpation (GI): Soft to palpation and nontender Auscultation: normal bowel sounds Skin General skin exam: no rashes or lesions noted Neuro General: patient oriented x3 and no focal motor deficits Extrem General: Yes full ROM Psych Appearance: grossly normal Assessment and Plan Assessment & Plan (1) Physical exam: Code(s): Z00.00 - Encounter for general adult medical examination without abnormal findings Plan: Repeat in a year. (2) Mild recurrent major depression: Code(s): F33.0 - Major depressive disorder, recurrent, mild Plan: In remission. 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
== END 2023-12-18 14:19 | disposition home or self-care (01) ==
PROVIDERS: PCP Internal Medicine; Visit Provider Internal Medicine
DX: Z00.00 Encounter for general adult medical examination without abnormal findings (principal); F33.0 Major depressive disorder, recurrent, mild
CPT/HCPCS: 99395

== ENCOUNTER 2024-01-08 16:18 | Outpatient (REF) | payer OTHER, SELFPAY ==
[2024-01-11 07:23] LABS: TS Negative Control Passed; TS Panel A 0; TS Panel B 0; TS Positive Control Passed; TSpotTB Negative (Negative)
== END 2024-01-08 16:19 | disposition home or self-care (01) ==
LOC: HO.LAB 16:18
PROVIDERS: PCP Internal Medicine; Visit Provider Internal Medicine
DX: Z11.1 Encounter for screening for respiratory tuberculosis (principal)
CPT/HCPCS: 36415; 86481

== ENCOUNTER 2024-06-15 19:46 | Emergency (ER) | payer OTHER, SELFPAY ==
--- NOTE | ~2024-06-15 | CT_ITS ---
CLINICAL HISTORY: abd pain diffuse CT abdomen and pelvis with contrast Comparison: CT - CT ABDOMEN PELVIS W IV CON - 06/16/24 01:00 EST Findings: No consolidation or effusion. The liver, spleen, pancreas, kidneys and adrenal glands are normal in appearance. Gallbladder is surgically absent. No bowel obstruction, pneumoperitoneum, or pneumatosis. Appendix is normal. Urinary bladder is moderately distended. There is a cystic lesion within the left ovary which measures 5 cm in diameter, new in comparison to prior. Right ovary and uterus are normal. No free fluid in the pelvis. No acute fracture. IMPRESSION: Cystic 5 cm lesion within the left ovary. This document has been electronically signed by: Benja Watts MD on 06/16/2024 02:44:08
[2024-06-15 20:15] VITALS: BP 104/59; PULSE 88; RESP 18; TEMP 36.9; O2SAT 100; BMI 31.3
--- NOTE | 2024-06-15 20:22 | ED.GENADULT ---
HPI - General Adult General Chief complaint: Abdominal Pain Stated complaint: Abd pain/burning Related Data Previous Rx's ?Medication ?Instructions ?Recorded hydroxyzine pamoate 25 mg capsule 25 mg PO Q8H 30 days #90 caps 11/13/20 bacitracin 500 unit/gram topical 1 appl topical BID #30 grams 11/21/23 ointment Allergies Allergy/AdvReac Type Severity Reaction Status Date / Time aspirin [ASPIRIN] Allergy Intermediate THROAT Verified 06/15/24 20:17 CLOSES, RASH ibuprofen [From MOTRIN] Allergy Intermediate THROAT Verified 06/15/24 20:17 CLOSES, RASH mushroom [MUSHROOM] Allergy Intermediate rash Verified 06/15/24 20:17 seafood Allergy Intermediate throat/facial Verified 06/15/24 20:17 swelling-difficulty breathing tramadol Allergy Intermediate Rash Verified 06/15/24 20:17 PMFSH Past Medical History Medical History STEVE (generalized anxiety disorder) Mild recurrent major depression Physical exam Anxiety and depression Anemia Obese Allergic rhinitis Insomnia Depression with anxiety Surgical History Hx laparoscopic cholecystectomy Previous section Family History Family History Father Arthritis History of bowel disorder Hypertension Asthma Mother Hemorrhoids Hypertension Asthma Maternal Grandfather Asthma Diabetes Paternal Grandmother Asthma Diabetes Fibromyalgia Paternal Aunt Migraine Brother In good health Sister In good health Social History Social History Housing: Apartment Alcohol intake: never Patient Tobacco Use Status: Current everyday Tobacco user Tobacco use type: Cigarette Cigarettes Per Day: 6 e-Cigarette/Vaping Use: Never Used Second Hand Smoke Exposure: No service: No Current occupational status: employed Current occupational exposures/hazards: No Cognitive needs: No Hearing needs: No Vision needs: Yes Physical Exam ED Vital Signs: Vital Signs - 24 hr 06/15/24 20:15 Temperature 98.5 F Pulse Rate 88 Respiratory Rate 18 Blood Pressure 104/59 L Pulse Oximetry 100 Oxygen Delivery Method Room Air BMI result Body Mass Index 31.3 Course Course Course Narrative: RME: 38 year female presents to ED for generalized abdominal pain that has gotten progressively worse throughout the day. Patient denies any fever chills nausea vomiting or diarrhea. Patient denies any genitourinary symptoms. Labs SARs strep ordered. Discharge Plan Discharge Prescriptions: No Action hydroxyzine pamoate 25 mg capsule 25 mg PO Q8H 30 Days Qty: 90 2RF bacitracin 500 unit/gram ointment 1 appl topical BID Qty: 30 0RF Print Language: Azerbaijani
[2024-06-15 20:35] LABS: MANUAL DIFF FLAG NO
[2024-06-15 20:36] LABS: Basophils Absolute Auto 0.1 X10*3/uL (0.0-0.2); Basophils Percent Auto 0.7 % (0-2); Eosinophils Absolute Auto 0.2 X10*3/uL (0.0-0.4); Eosinophils Percent Auto 1.5 % (0-4); Hematocrit 40.8 % (37.0-47.0); Imm Gran Abs Auto 0.04 X10*3/uL (0.00-0.03); Imm Gran Pct Auto 0.3 % (0.0-0.4); Lymphocytes Absolute Auto 2.7 X10*3/uL (1.2-4.9); Lymphocytes Percent Auto 22.6 % (20-40); Mean Corpuscular HGB Conc 31.9 g/dl (31.0-35.0); Mean Corpuscular Hemoglobin 24.6 pg (27.0-33.0); Mean Corpuscular Volume 77.1 fL (80.0-98.0); Mean Platelet Volume 10.8 fL (9.4-12.3); Monocytes Absolute Auto 1.5 X10*3/uL (0.1-1.2); Monocytes Percent Auto 12.5 % (2-11); Neutrophils Absolute Auto 7.4 x10*3/uL (2.0-8.3); Neutrophils Percent Auto 62.4 % (45-73); Platelet Count 243 X10*3/uL (160-400); Red Blood Count 5.29 X10*6/uL (4.20-5.50); Red Cell Distribution Width 14.6 % (11.0-16.0); White Blood Count 11.8 X10*3/uL (4.8-10.8)
[2024-06-15 20:45] LABS: IDNOW Serial# 6674DD1D; Strep A Nucleic Acid Negative (Negative)
[2024-06-15 20:59] LABS: Alanine Aminotransferase 10 U/L (0-31); Albumin Level 4.1 g/dL (3.5-5.0); Alkaline Phosphatase 61 U/L (39-117); Anion Gap 11 (12-20); Aspartate Amino Transferase 12 U/L (5-31); Bilirubin Total 0.7 mg/dL (0.0-1.0); Blood Urea Nitrogen 17 mg/dL (9-16); Calcium 9.3 mg/dL (8.4-10.2); Carbon Dioxide 26 mmol/L (22-29); Chloride 106 mmol/L (96-108); Creatinine Clr Calc Pharmacy 105.1; Estimated Glomerular Filt Rate > 60; Glucose Random 86 mg/dL (60-115); HCG Quantitative < 2 mIU/mL; Lipase 19 U/L (8-78); Sodium 139 mmol/L (135-145); Total Protein 7.4 g/dL (6.5-8.0)
[2024-06-15 21:14] LABS: Influenza A PCR NEGATIVE (Negative); Influenza B PCR NEGATIVE (Negative); Resp Syncy Virus RNA Qual PCR NEGATIVE (Negative); SARS COV2 PCR INHOUSE NEGATIVE (Negative)
[2024-06-15 21:24] LABS: Appearance Urine Clear; Color Urine Yellow; Glucose Urine UA Negative (Negative); Leukocyte Esterase Urine Negative (Negative); Nitrite Urine Negative (Negative); PH 6.5 (5.0-9.0); Urine Blood Negative (Negative); Urine Ketones Negative (Negative); Urine Protein Negative (Neg-Trace)
[2024-06-15 22:33] LABS: UPreg QC Valid YES; Urine Pregnancy NEGATIVE (NEGATIVE)
--- NOTE | 2024-06-16 00:08 | ED_ITS ---
HPI - Abdominal Pain General Chief Complaint: Abdominal Pain Stated Complaint: Abd pain/burning Time Seen by Provider: 06/15/24 23:58 History of Present Illness HPI narrative: Patient is a 38-year-old female presents today with having generalized abdominal pain since yesterday getting worse. There is no nausea no vomiting there is no diarrhea. There is no vaginal bleeding. There is no fever there is no chills is no coughing there is no congestion. The pain is burning like. She is from home. Been ongoing for 2 days. Related Data Previous Rx's ?Medication ?Instructions ?Recorded hydroxyzine pamoate 25 mg capsule 25 mg PO Q8H 30 days #90 caps 11/13/20 bacitracin 500 unit/gram topical 1 appl topical BID #30 grams 11/21/23 ointment Allergies Allergy/AdvReac Type Severity Reaction Status Date / Time aspirin [ASPIRIN] Allergy Intermediate THROAT Verified 06/15/24 20:17 CLOSES, RASH ibuprofen [From MOTRIN] Allergy Intermediate THROAT Verified 06/15/24 20:17 CLOSES, RASH mushroom [MUSHROOM] Allergy Intermediate rash Verified 06/15/24 20:17 seafood Allergy Intermediate throat/facial Verified 06/15/24 20:17 swelling-difficulty breathing tramadol Allergy Intermediate Rash Verified 06/15/24 20:17 Review of Systems Review of Systems Positive abdominal pain Yes all other systems are reviewed and are negative PMFSH Past Medical History Attestation statement: The following information was validated with the patient. Medical History STEVE (generalized anxiety disorder) Mild recurrent major depression Physical exam Anxiety and depression Anemia Obese Allergic rhinitis Insomnia Depression with anxiety Surgical History Hx laparoscopic cholecystectomy Previous section Family History Family History Father Arthritis History of bowel disorder Hypertension Asthma Mother Hemorrhoids Hypertension Asthma Maternal Grandfather Asthma Diabetes Paternal Grandmother Asthma Diabetes Fibromyalgia Paternal Aunt Migraine Brother In good health Sister In good health Social History Social History Housing: Apartment Alcohol intake: never Patient Tobacco Use Status: Current everyday Tobacco user Tobacco use type: Cigarette Cigarettes Per Day: 6 Smoked in Last 30 Days: No e-Cigarette/Vaping Use: Never Used Second Hand Smoke Exposure: No Use of substances other than those prescribed or required for medical reasons: No Advance Directives: No Advance Directives Information Provided: Yes Patient : No service: No Current occupational status: employed Current occupational exposures/hazards: No Cognitive needs: No Hearing needs: No Vision needs: Yes Physical Exam ED Vital Signs: Vital Signs - 24 hr 06/15/24 20:15 06/16/24 01:53 Temperature 98.5 F 97.9 F Pulse Rate 88 97 Respiratory Rate 18 16 Blood Pressure 104/59 L 113/71 Pulse Oximetry 100 97 Oxygen Delivery Method Room Air Room Air BMI result Body Mass Index 31.3 Appearance: Alert. Oriented X3. No acute distress. Eyes: Pupils equal, round and reactive to light. ENT: Pharynx normal. Neck: Normal inspection. Neck supple. No lymph nodes noted. No crepitus CVS: Normal heart rate and rhythm. Pulses normal. Normal S1 and S2 Respiratory: No respiratory distress. Breath sounds normal. No Wheezing. No rales Abdomen: Soft and nontender. No rigidity. No distention. good BS x4 Skin: Skin warm and dry. Normal skin color. Normal skin turgor. Extremities: No lower extremity edema. Neurovascular intact to all extremities. No Lacerations. No Rash Neuro: Oriented X 3. No motor deficit. No sensory deficit. Moving all extermities. No slurred speech Medical Decision Making Medical Decision Making MDM Narrative: Patient complaining of diffuse abdominal pain since yesterday. Not getting any better no nausea no vomiting or diarrhea. Labs ordered. IV fluids given. Patient's white count is 12. Electrolytes are unremarkable LFTs are normal no evidence for biliary disease. test is negative no related issues. Patient's urine showed no signs of infection. COVID flu RSV were all negative. CT scan of the abdomen is still pending. Patient's CT scan of the abdomen essentially negative except for 5 cm left ovarian cyst patient does not have any significant tenderness in the left lower quadrant advised to follow with ob gyn physician assistant Differential Diagnosis Differential Diagnoses: The differential diagnosis associated with the presentation includes Abdominal pain versus gastritis versus pancreatitis, obstruction, abscess Admission/Observation Consideration of admission/observation: Escalation of care including admission/observation considered Lab Data [facility] Lab Attestation statement: I reviewed the patient's lab results. 06/15/24 20:30 06/15/24 20:30 Labs: Lab Results 06/15/24 06/15/24 06/15/24 Range/Units 20:30 20:31 21:17 WBC 11.8 H (4.8-10.8) X10*3/uL RBC 5.29 (4.20-5.50) X10*6/uL Hgb 13.0 (12.0-16.0) g/dl Hct 40.8 (37.0-47.0) % MCV 77.1 L (80.0-98.0) fL MCH 24.6 L (27.0-33.0) pg MCHC 31.9 (31.0-35.0) g/dl RDW 14.6 (11.0-16.0) % Plt Count 243 (160-400) X10*3/uL MPV 10.8 (9.4-12.3) fL Immature Gran % (Auto) 0.3 (0.0-0.4) % Neut % (Auto) 62.4 (45-73) % Lymph % (Auto) 22.6 (20-40) % [place] % (Auto) 12.5 H (2-11) % Eos % (Auto) 1.5 (0-4) % Baso % (Auto) 0.7 (0-2) % Lymph # (Auto) 2.7 (1.2-4.9) X10*3/uL [place] # (Auto) 1.5 H (0.1-1.2) X10*3/uL Eos # (Auto) 0.2 (0.0-0.4) X10*3/uL Baso # (Auto) 0.1 (0.0-0.2) X10*3/uL Abs Immat Gran (auto) 0.04 H (0.00-0.03) X10*3/uL Absolute Neuts (auto) 7.4 (2.0-8.3) x10*3/uL Absolute Nucleated RBC 0.000 (0.0-0.012) X10*3/uL Nucleated RBC % (auto) 0.0 (0.0-0.2) /100WBC Sodium 139 (135-145) mmol/L Potassium 4.0 (3.3-5.1) mmol/L Chloride 106 (96-108) mmol/L Carbon Dioxide 26 (22-29) mmol/L Anion Gap 11 L (12-20) BUN 17 H (9-16) mg/dL Creatinine 0.72 (0.5-1.4) mg/dL Estim Creat Clear Calc 105.1 Estimated GFR > 60 Random Glucose 86 (60-115) mg/dL Calcium 9.3 (8.4-10.2) mg/dL Total Bilirubin 0.7 (0.0-1.0) mg/dL AST 12 (5-31) U/L ALT 10 (0-31) U/L Alkaline Phosphatase 61 (39-117) U/L Total Protein 7.4 (6.5-8.0) g/dL Albumin 4.1 (3.5-5.0) g/dL Lipase 19 (8-78) U/L Beta HCG, Quant < 2 mIU/mL Urine Color Yellow Urine Appearance Clear Urine pH 6.5 (5.0-9.0) Ur Specific [place] 1.020 (1.005-1.025) Urine Protein Negative (Neg-Trace) mg/dL Urine Glucose (UA) Negative (Negative) mg/dL Urine Ketones Negative (Negative) mg/dL Urine Blood Negative (Negative) Urine Nitrite Negative (Negative) Ur Leukocyte Esterase Negative (Negative) Urine Test NEGATIVE (NEGATIVE) Influenza Type A (PCR) NEGATIVE (Negative) Influenza Type B (PCR) NEGATIVE (Negative) RSV RNA Qual (PCR) NEGATIVE (Negative) SARS-CoV-2 RNA (RT-PCR) NEGATIVE (Negative) S. pyogenes GrpA JAYSON Negative (Negative) Radiology Impression Discussion of test interpretation with radiology: I have reviewed the radiologist's reading. Radiologist Impression: Close Abdomen/Pelvis CT (Signed) Benja Watts - 06/16/24 Launch?Image [place] [id number] CT Scan Report Signed Patient: Cleo Saenz MR#: [id number] : 1985 Acct:[id number] Age/Sex: 38 / F ADM Date: 06/15/24 Loc: HO.ED Attending Dr: Ordering Physician: Gloria Sanchez MD Date of Service: 06/16/24 Procedure(s): CT abdomen pelvis w IV con Accession Number(s): [id number] cc: Gloria Sanchez MD; Ellie Palma MD~ Report Number: [id number]: Total DLP = 654.00 mGy-cm CLINICAL HISTORY: abd pain diffuse CT abdomen and pelvis with contrast Comparison: CT - CT ABDOMEN PELVIS W IV CON - 06/16/24 01:00 EST Findings: No consolidation or effusion. The liver, spleen, pancreas, kidneys and adrenal glands are normal in appearance. Gallbladder is surgically absent. No bowel obstruction, pneumoperitoneum, or pneumatosis. Appendix is normal. Urinary bladder is moderately distended. There is a cystic lesion within the left ovary which measures 5 cm in diameter, new in comparison to prior. Right ovary and uterus are normal. No free fluid in the pelvis. No acute fracture. IMPRESSION: Cystic 5 cm lesion within the left ovary. This document has been electronically signed by: Benja Watts MD on 06/16/2024 02:44:08 External Record Review External record reviewed: Inpatient record Chronic Conditions Depression anxiety Social Determinants Patient?s care significantly limited by Social Determinants of Health including: Problems related to primary support group Medications Administered Discontinued Medications Generic Name Dose Route Start Last Admin Trade Name Freq PRN Reason Stop Dose Admin Al Hydroxide/Mg Hydroxide 30 ml 06/16/24 00:07 06/16/24 00:33 Magnesium Hydrox/Alum Hydrox 30 Ml Oral.Susp PO 06/16/24 00:08 30 ml ONCE ONE Administration Sodium Chloride 1,000 mls @ 999 mls/hr 06/16/24 00:15 06/16/24 02:01 Ns IV 06/16/24 01:15 Infused .Q1H1M CORIN Infusion Iohexol 85 ml 06/16/24 01:06 06/16/24 01:07 Iohexol 350 Mg/Ml 100 Ml Infus..Btl IV 06/16/24 01:07 85 ml ONCE ONE Administration Discharge Plan Discharge Clinical Impression: Abdominal pain Patient Disposition: Still a Patient Prescriptions: No Action hydroxyzine pamoate 25 mg capsule 25 mg PO Q8H 30 Days Qty: 90 2RF bacitracin 500 unit/gram ointment 1 appl topical BID Qty: 30 0RF Print Language: Bulgarian
[2024-06-16] MEDS: Magnesium Hydrox/Alum Hydrox 30 ML ORAL.SUSP PO (00:33)
[2024-06-16] MEDS: 0.9 % Sodium Chloride 1,000 ML 999 ML IV (00:40)
[2024-06-16] MEDS: iohexoL 350 MG/ML 100 ML INFUS..BTL 85 ML IV (01:07)
[2024-06-16 01:53] VITALS: BP 113/71; PULSE 97; RESP 16; TEMP 36.6; O2SAT 97
[2024-06-16 04:57] VITALS: BP 119/71; PULSE 81; RESP 16; TEMP 36.6; O2SAT 98
== END 2024-06-16 05:11 | disposition home or self-care (01) ==
PROVIDERS: Physician Assistant; Emergency Provider Emergency Medicine Emergency Medical Services; PCP Internal Medicine
DX: R10.2 Pelvic and perineal pain (principal); R11.0 Nausea; F17.210 Nicotine dependence, cigarettes, uncomplicated; Z03.818 Encounter for observation for suspected exposure to other biological agents ruled out; Z79.899 Other long term (current) drug therapy
CPT/HCPCS: 0241U; 74177; 80053; 81003; 81025; 83690; 84702; 85025; 87651; 96360; 99284; Q9967

== ENCOUNTER → 2024-06-16 00:06 | Outpatient (BNV) | payer OTHER, SELFPAY | PROVIDERS: Emergency Provider Emergency Medicine Emergency Medical Services; PCP Internal Medicine; Visit Provider Radiology Diagnostic Radiology | DX: N83.202 Unspecified ovarian cyst, left side (principal) | CPT/HCPCS: 74177 ==

== ENCOUNTER 2024-06-16 10:32 | Outpatient (AMB) | payer OTHER, SELFPAY ==
[2024-06-16 10:45] VITALS: BP 128/70; PULSE 86; O2SAT 98; BMI 31.2
--- NOTE | 2024-06-16 10:45 | A.OFFPC_ITS ---
Vital Signs 06/16/24 10:45 Height 5 ft 3 in Weight 176 lb BMI 31.2 BP 128/70 Blood Pressure Location Lt brachial Position Sitting Pulse 86 Pulse Source Pulse Oximeter Pulse Oximetry (%) 98 Oxygen Delivery Method Room Air Intake Visit Reasons: [facility] 05/16 abdominal pain Allergies aspirin [ASPIRIN] Allergy (Intermediate, Verified 06/16/24 11:02) THROAT CLOSES, RASH ibuprofen [From MOTRIN] Allergy (Intermediate, Verified 06/16/24 11:02) THROAT CLOSES, RASH mushroom [MUSHROOM] Allergy (Intermediate, Verified 06/16/24 11:02) rash seafood Allergy (Intermediate, Verified 06/16/24 11:02) throat/facial swelling-difficulty breathing tramadol Allergy (Intermediate, Verified 06/16/24 11:02) Rash Medication List - Last Reconciled 06/16/24 by Ellie Desouza MD bacitracin 1 appl topical BID hydroxyzine pamoate 25 mg PO Q8H 30 days Tobacco use date assessed: 06/16/24 Dental Screening Dental Screen Date: 06/16/24 Did you have a dental visit in the last 12 months?: Yes Did you have a dental problem in the last 6 months where you did not have access to dental care?: No Was dental information given to patient?: Patient has dentist HPI HPI Comments History of Present Illness Details The patient is a 38-year-old female presenting with mild abdominal pain. The patient initially experienced mild abdominal pain and nausea, increasing to significant pain across the entire abdomen yesterday. The pain was described as originating in the intestines and being severe enough to prompt a visit to the hospital under parental advice. There is no history of bleeding per vagina or associated symptoms such as changes in bowel habits initially identified. The patient previously underwent evaluation for a gastrointestinal cyst with follow-up appointments scheduled. Medication for pain relief was administered with a recommendation to take medication with food to avoid stomach irritation. No factors directly worsen or allay the pain outside of the utilized treatments. The patient does not consume alcohol and recently ceased smoking approximately six cigarettes a day, discontinuing in February. [facility] Medical History (Updated 06/16/24 @ 11:59 by Ellie Desouza MD) STEVE (generalized anxiety disorder) Mild recurrent major depression Physical exam Anxiety and depression Anemia Obese Allergic rhinitis Insomnia Depression with anxiety Surgical History Hx laparoscopic cholecystectomy Previous section Family History Father Arthritis History of bowel disorder Hypertension Asthma Mother Hemorrhoids Hypertension Asthma Maternal Grandfather Asthma Diabetes Paternal Grandmother Asthma Diabetes Fibromyalgia Paternal Aunt Migraine Brother In good health Sister In good health Social History (Updated 06/16/24 @ 11:05 by Ellie Desouza MD) Housing: Apartment Alcohol intake: never Patient Tobacco Use Status: Former Tobacco user Tobacco use type: Cigarette Cigarettes Per Day: 6 e-Cigarette/Vaping Use: Never Used Second Hand Smoke Exposure: No service: No Current occupational status: employed Current occupational exposures/hazards: No Cognitive needs: No Hearing needs: No Vision needs: Yes Questionnaire PHQ-9 Over the last 2 weeks, how often have you been bothered by any of the following problems? 1. Little interest or pleasure in doing things: not at all 2. Feeling down, depressed, or hopeless: not at all 3. Trouble falling or staying asleep, or sleeping too much: not at all 4. Feeling tired or having little energy: not at all 5. Poor appetite or overeating: not at all 6. Feeling bad about yourself - or that you are a failure or have let yourself or your family down: not at all 7. Trouble concentrating on things, such as reading the newspaper or watching television: not at all 8. Moving or speaking so slowly that other people could have noticed. Or the opposite - being so fidgety or restless that you have been moving around a lot more than usual: not at all 9. Thoughts that you would be better off or of hurting yourself in some way: not at all Total score: 0 Depression Screening Interpretation: Negative Depression Screening Done: Yes 75512 - PHQ-9 Billing: Yes Source: Developed by Drs. Reynaldo Rolon, Dianelys Lopez, Denzel Ramirez and colleagues, with an educational williams from [employer]. Thrive Questionnaire Date Thrive assessed: 06/16/24 I am a: Patient What is your living situation today?: I have a steady place to live Within the past 12 months, did the food you bought not last and you didn't have the money to get more?: Never true Within the past 12 months, did you worry whether your food would run out before you got money to buy more?: Never true Do you have trouble paying for medicines?: No Do you have trouble getting transportation to medical appointments?: No Do you have trouble paying your heating and electricity bill?: No Do you have trouble taking care of your child, family member or friend?: No Do you have trouble with day-to-day activities such as bathing, preparing meals, shopping, managing finances, etc.?: No Are you currently unemployed and looking for a job?: No Are you interested in more education?: No Please select the resources that you would like help with: None Currently or been in a relationship where the following occur: No concerns reported THRIVE Score: 0 AUDIT C Alcohol Use Questionnaire (AUDIT-C) 1. How often do you have a drink containing alcohol?: Never 3. How often do you have six or more drinks on one occasion?: Never Total Score: 0 Score Reviewed/Action Taken: No STEVE-7 AMB Questionnaire STEVE-7 Date STEVE - 7 assessed: 06/16/24 Feeling nervous, anxious, or on edge: 0 = Not at all Not being able to stop or control worryin = Not at all Worrying too much about different things: 0 = Not at all Trouble relaxin = Not at all Being so restless that it is hard to sit still: 0 = Not at all Becoming easily annoyed or irritable: 0 = Not at all Feeling afraid as if something awful might happen: 0 = Not at all Total STEVE-7 score (0-4 normal; 5-9 mild; 10-14 moderate; 15-21 severe): 0 Source: Developed by Drs. Reynaldo Rolon, Dianelys Lopez, Denzel Ramirez and colleagues, with an educational williams from [employer]. STEVE-7 Assessment Billing STEVE-7 Assessment Tool: STEVE-7 Assessment 71315 Review of Systems Const Details: - Gastrointestinal: Reports nausea and generalized abdominal pain Physical exam (Primary Care) Vital Signs: Last Vital Signs Pulse 86 06/16/24 10:45 BP 128/70 06/16/24 10:45 Pulse Ox 98 06/16/24 10:45 Oxygen Delivery Method Room Air 06/16/24 10:45 BMI result Body Mass Index 31.2 BMI Assessment/Plan discussion: High BMI High, discussed plan: lifestyle, weight reduction, dietary and physical activity Tobacco/Smoking Status: Tobacco use Status Tobacco use date assessed 06/16/24 06/16/24 10:51 Patient Tobacco Use Status Former Tobacco user 06/16/24 11:05 Tobacco use type Cigarette 06/16/24 11:05 e-Cigarette/Vaping Use Never Used 06/16/24 11:05 PHQ-9: PHQ-9 Score PHQ-9: Total score 0 06/16/24 11:04 Depression Screening Interpretation: Negative Thrive Assessment: Date of Thrive Assessment Date Thrive assessed 06/16/24 06/16/24 10:51 Currently or been in a relationship where the following occur: No concerns reported Const Other: General: No confusion Respiratory: Normal respiratory effort, clear to auscultation bilaterally Cardiovascular: No jugular venous distension, regular rate, regular rhythm, S1 normal heart sound present and S2 normal heart sound present GI: Abdominal pain present, nausea reported, Soft to palpation and nontender, normal bowel sounds Extremities: Full ROM Coding Level of Care Code Est Pt Level 3 (33463) Complex EM visit Add On G2211 Diagnoses Ovarian cyst N83.209 Additional Codes STEVE-7 Assessment Billing - STEVE-7 Assessment Tool: STEVE-7 Assessment 42569 ([id number]) PHQ-9 - 52335 - PHQ-9 Billing: Yes ([id number]) Time Spent (min) 19 Assessment & Plan Assessment & Plan (1) Ovarian cyst: Code(s): N83.209 - Unspecified ovarian cyst, unspecified side Category: Medical Plan - Advise evaluation and management of ovarian cyst, with ongoing monitoring. - Recommendation for continuation of pain management with specific emphasis on taking medication with food. - Discussed the potential need for consultation or intervention with gynecology depending on symptom progression or emergence of additional symptoms such as fever or persistent nausea. Patient was informed and verbally consented to the use of an ambient scribe for clinic note documentation during this visit. I discussed with the patient the severity of the abdominal pain and the importance of prompt evaluation, especially given the previous diagnosis of o varian cyst. I emphasized the need for monitoring symptom progression, such as the appearance of fever or persistent nausea, which would necessitate immediate medical attention. We reviewed the follow-up appointment scheduled for July 30 and the potential need for gynecological evaluation if the current symptoms persist. The importance of continuing pain medication with food to avoid gastrointestinal discomfort was discussed, and the patient agreed to consider gynecologic options based on future consultations. Medications: New acetaminophen 500 mg PO Q6H PRN 120 tabs 1RF pain 30 days Patient Instructions: - Continue to take pain medication with food to prevent stomach irritation. - Monitor for symptoms such as fever, persistent nausea, or severe exacerbation of abdominal pain and seek emergency care if these occur. - Attend the scheduled follow-up appointment on July 30 for reevaluation of the ovarian cyst and discuss further management options. - Avoid smoking and stay abstinent from alcohol as part of general health maintenance.
== END 2024-06-16 11:09 | disposition home or self-care (01) ==
PROVIDERS: PCP Internal Medicine; Visit Provider Internal Medicine
DX: N83.209 Unspecified ovarian cyst, unspecified side (principal)

== ENCOUNTER → 2024-06-16 10:32 | Outpatient (BNVA) | payer OTHER, SELFPAY | PROVIDERS: PCP Internal Medicine; Visit Provider Internal Medicine | DX: N83.209 Unspecified ovarian cyst, unspecified side (principal); R10.9 Unspecified abdominal pain; Z87.891 Personal history of nicotine dependence | CPT/HCPCS: 96127; 99212 ==

== ENCOUNTER 2024-08-12 09:14 | Emergency (ER) | payer MEDICAID, SELFPAY ==
--- NOTE | 2024-08-12 11:23 | ED.NAVMDI ---
HPI - Nausea/Vomiting/Diarrhea General Chief complaint: General Medical Stated complaint: Vomiting Time Seen by Provider: 08/12/24 18:35 Source: patient Mode of arrival: ambulatory Limitations: no limitations History of Present Illness ED Provider: Dr. Pasha Lee HPI Narrative: 38-year-old female with a history of anemia, depression, anxiety who presents emergency department for evaluation of nausea, vomiting x5 days, he was strong odor to her urine and incontinence of urine x3. Patient was also complaining of soreness and pruritus of her breasts bilaterally. Patient states that she has been vomiting at least 4 times a day. She has noted urinary frequency but no dysuria. She denied fever or chills. Patient is concerned that she might be . Related Data Previous Rx's ?Medication ?Instructions ?Recorded hydroxyzine pamoate 25 mg capsule 25 mg PO Q8H 30 days #90 caps 11/13/20 bacitracin 500 unit/gram topical 1 appl topical BID #30 grams 11/21/23 ointment acetaminophen 500 mg tablet 500 mg PO Q6H PRN pain 30 days 06/16/24 #120 tabs cefuroxime axetil 250 mg tablet 250 mg PO Q12H 5 days #10 tabs 08/12/24 metoclopramide HCl 10 mg tablet 10 mg PO Q6H PRN nausea and 08/12/24 (Reglan) vomiting #14 tabs phenazopyridine 200 mg tablet 200 mg PO TID PRN Burning with 08/12/24 (Pyridium) urination 3 days #9 tabs Allergies Allergy/AdvReac Type Severity Reaction Status Date / Time aspirin [ASPIRIN] Allergy Intermediate THROAT Verified 08/12/24 11:26 CLOSES, RASH ibuprofen [From MOTRIN] Allergy Intermediate THROAT Verified 08/12/24 11:26 CLOSES, RASH mushroom [MUSHROOM] Allergy Intermediate rash Verified 08/12/24 11:26 seafood Allergy Intermediate throat/facial Verified 08/12/24 11:26 swelling-difficulty breathing tramadol Allergy Intermediate Rash Verified 08/12/24 11:26 Review of Systems Review of Systems: Yes all other systems are reviewed and are negative [facility] Past Medical History [facility] Narrative: Social history: She denies tobacco, alcohol and drug use. Medical History (Updated 08/13/24 @ 00:00 by Background Daemon) STEVE (generalized anxiety disorder) Mild recurrent major depression Physical exam Anxiety and depression Anemia Obese Allergic rhinitis Insomnia Depression with anxiety Surgical History Hx laparoscopic cholecystectomy Previous section Family History Family History Father Arthritis History of bowel disorder Hypertension Asthma Mother Hemorrhoids Hypertension Asthma Maternal Grandfather Asthma Diabetes Paternal Grandmother Asthma Diabetes Fibromyalgia Paternal Aunt Migraine Brother In good health Sister In good health Social History Social History (Updated 06/16/24 @ 11:05 by Ellie Desouza MD) Housing: Apartment Alcohol intake: never Patient Tobacco Use Status: Former Tobacco user Tobacco use type: Cigarette Cigarettes Per Day: 6 e-Cigarette/Vaping Use: Never Used Second Hand Smoke Exposure: No Advance Directives: No Advance Directives Information Provided: No Do you have a plan to hurt others: No Plan service: No Current occupational status: employed Current occupational exposures/hazards: No Cognitive needs: No Hearing needs: No Vision needs: Yes Physical Exam Vital Signs: Vital Signs: Last Vital Signs Temp 97.8 F 08/12/24 19:30 Pulse 75 08/12/24 19:30 Resp 17 08/12/24 19:30 BP 111/63 08/12/24 19:30 Pulse Ox 100 08/12/24 19:30 O2 Del Method Room Air 08/12/24 19:30 BMI result Body Mass Index 29.7 Vital signs were normal Exam: General: Awake, alert in no distress Head: Normocephalic, atraumatic EENT: PERRL, Lids normal, sclera normal, conjunctiva normal, nose normal , ears normal, throat without erythema or exudates Neck: Supple, no adenopathy Lung: breath sounds symmetric, no wheezing, rales or rhonchi Chest: symmetric movement, nontender, nurse chaperoned breast exam revealed no skin lesions,erythema or increased warmth, no tenderness to palpation Heart: regular rate and rhythm, normal S1, S2 no murmurs or rubs Abdomen: soft, moderate suprapubic tenderness, nondistended, normal bowel sounds Back: no vertebral tenderness, no CVAT Extremities: no deformities, moves all extremities symmetrically Neuro: Awake, alert, oriented, normal speech, cranial nerves intact, moves all extremities symmetrically Psych: Pleasant, cooperative Course Course Course Narrative: 38 yo female with PMH of anxiety/depression, anemia, who presents with c/o n/v x 5 days. She notes she has mucous or bad smelling vomit. She has small strong of odor. She notes when she eats she vomits. She also has sore breasts. At this time she is worried she is . No discharge or bleeding from the vagina. At this time will obtain basic labs, UA. this is a RAPID medical screening exam the rest of the history and physical exam is to be done by the main provider. Medications Administered Discontinued Medications Generic Name Dose Route Start Last Admin Trade Name Freq PRN Reason Stop Dose Admin Cefuroxime Axetil 250 mg 08/12/24 19:02 08/12/24 19:24 Cefuroxime Axetil 250 Mg Tablet PO 08/12/24 19:03 250 mg ONCE ONE Administration Metoclopramide HCl 10 mg 08/12/24 19:02 08/12/24 19:24 Metoclopramide Hcl 10 Mg Tablet PO 08/12/24 19:03 10 mg ONCE STA Administration Phenazopyridine HCl 200 mg 08/12/24 19:02 08/12/24 19:23 Phenazopyridine Hcl 200 Mg Tablet PO 08/12/24 19:03 200 mg ONCE ONE Administration Medical Decision Making Medical Decision Making [facility] Narrative: 38-year-old female with a history of anemia, depression, anxiety who presents emergency department for evaluation of nausea, vomiting x5 days, he was strong odor to her urine and incontinence of urine x3. Patient was also complaining of soreness and pruritus of her breasts bilaterally. Patient states that she has been vomiting at least 4 times a day. She has noted urinary frequency but no dysuria. She denied fever or chills. Patient is concerned that she might be . vital signs were normal. Patient had suprapubic tenderness. Breast exam revealed no significant abnormalities. Differential diagnosis: Includes but is not limited to Viral syndrome, urinary tract infection, allergic reaction, anemia, electrolyte abnormalities Course: My interpretation of the patient's laboratory evaluation is as follows: Elevated WBC 59084. CMP was normal. Lipase was normal. Urinalysis was positive for blood and nitrates. Microscopic revealed 3-5 RBCs greater than 50 WBCs, 4 , 0-2 squamous cells - urinalysis is consistent with a urinary tract infection. Patient's symptoms presentation are consistent with a urinary tract infection most likely cystitis. she was treated in the emergency department with the following oral medications: Cefuroxime 250 mg, Reglan 10 mg and Pyridium 200 mg. she was given prescriptions for cefuroxime 250 mg q.12 hours x5 days, Reglan 10 mg every 6-8 hours as needed for nausea and vomiting and Pyridium 200 mg 3 times a day as needed for painful urination. She was given printed and verbal instructions and discharged home. Admission/Observation Consideration of admission/observation: Escalation of care including admission/observation considered ( Yes) Lab Data MDM Lab Attestation statement: I reviewed the patient's lab results. 08/12/24 13:16 08/12/24 13:16 Labs: Lab Results 08/12/24 Range/Units 13:16 WBC 11.2 H (4.8-10.8) X10*3/uL RBC 5.40 (4.20-5.50) X10*6/uL Hgb 13.4 (12.0-16.0) g/dl Hct 41.4 (37.0-47.0) % MCV 76.7 L (80.0-98.0) fL MCH 24.8 L (27.0-33.0) pg MCHC 32.4 (31.0-35.0) g/dl RDW 14.9 (11.0-16.0) % Plt Count 234 (160-400) X10*3/uL MPV 10.5 (9.4-12.3) fL Immature Gran % (Auto) 0.4 (0.0-0.4) % Neut % (Auto) 71.4 (45-73) % Lymph % (Auto) 18.5 L (20-40) % [place] % (Auto) 7.7 (2-11) % Eos % (Auto) 1.5 (0-4) % Baso % (Auto) 0.5 (0-2) % Lymph # (Auto) 2.1 (1.2-4.9) X10*3/uL [place] # (Auto) 0.9 (0.1-1.2) X10*3/uL Eos # (Auto) 0.2 (0.0-0.4) X10*3/uL Baso # (Auto) 0.1 (0.0-0.2) X10*3/uL Abs Immat Gran (auto) 0.05 H (0.00-0.03) X10*3/uL Absolute Neuts (auto) 8.0 (2.0-8.3) x10*3/uL Absolute Nucleated RBC 0.000 (0.0-0.012) X10*3/uL Nucleated RBC % (auto) 0.0 (0.0-0.2) /100WBC Sodium 140 (135-145) mmol/L Potassium 4.1 (3.3-5.1) mmol/L Chloride 110 H (96-108) mmol/L Carbon Dioxide 25 (22-29) mmol/L Anion Gap 9 L (12-20) BUN 12 (9-16) mg/dL Creatinine 0.71 (0.5-1.4) mg/dL Estim Creat Clear Calc 96.1 Estimated GFR > 60 Random Glucose 93 (60-115) mg/dL Calcium 9.2 (8.4-10.2) mg/dL Magnesium 2.1 (1.6-2.6) mg/dL Total Bilirubin 1.1 H (0.0-1.0) mg/dL Direct Bilirubin 0.3 (0.0-0.5) mg/dL AST 15 (5-31) U/L ALT 11 (0-31) U/L Alkaline Phosphatase 57 (39-117) U/L Total Protein 7.6 (6.5-8.0) g/dL Albumin 4.0 (3.5-5.0) g/dL Lipase 17 (8-78) U/L Beta HCG, Quant < 2 mIU/mL Urine Color Yellow Urine Appearance Cloudy Urine pH 6.5 (5.0-9.0) Ur Specific [place] 1.020 (1.005-1.025) Urine Protein Negative (Neg-Trace) mg/dL Urine Glucose (UA) Negative (Negative) mg/dL Urine Ketones Negative (Negative) mg/dL Urine Blood Trace H (Negative) Urine Nitrite Positive H (Negative) Ur Leukocyte Esterase Large (3+) H (Negative) Urine RBC 3-5 H (0-2) /HPF Urine WBC >50 H (0-5) /HPF Ur Squamous Epith Cells 0-2 (0-2) /HPF Urine Bacteria 4+ (None Seen) Hyaline Casts 0-2 (0-2) /LPF Prescription Management I considered prescription management with: Pain Medication ( Pyridium) and Antibiotic ( cefuroxime and Reglan) Discharge Plan Discharge Clinical Impression: Urinary tract infection, Nausea & vomiting Patient Disposition: Home, Self-Care Instructions: Urinary Tract Infection in Women (ED) Additional Instructions: Your blood work was unremarkable. Your test was negative, you are not . Your urine is consistent with an infection of your urine/bladder. At this time I do not think that you have a kidney infection. Take cefuroxime 250 mg pills, 1 pill every 12 hours for 5 days. This is an antibiotic that should treat the infection. Take Reglan (metoclopramide) 10 mg pills, 1 pill every 6 hours as needed for nausea and vomiting. Take Pyridium 200 mg pills, 1 pill 3 times a day as needed for painful burning when you pee/urinate. Take Tylenol 500 mg pills, 2 pills every 6 hours as needed for fever or chills. Follow-up with your doctor in 2 days. Please return to the emergency department if your symptoms get worse or if you develop any symptoms that are concerning to you. Prescriptions: New cefuroxime axetil 250 mg tablet 250 mg PO Q12H 5 Days Qty: 10 0RF phenazopyridine [Pyridium] 200 mg tablet 200 mg PO TID PRN (Reason: Burning with urination) 3 Days Qty: 9 0RF metoclopramide HCl [Reglan] 10 mg tablet 10 mg PO Q6H PRN (Reason: nausea and vomiting) Qty: 14 0RF No Action hydroxyzine pamoate 25 mg capsule 25 mg PO Q8H 30 Days Qty: 90 2RF bacitracin 500 unit/gram ointment 1 appl topical BID Qty: 30 0RF acetaminophen 500 mg tablet 500 mg PO Q6H PRN (Reason: pain) 30 Days Qty: 120 1RF Stand Alone Forms: Work/School Release Interventions: LWBS Worksheet Last Done: 08/12/24 16:36 ED Discharge Assessment Last Done: 08/12/24 19:30 Discharge Date/Time: 08/12/24 19:30 Print Language: Lithuanian
[2024-08-12 11:24] VITALS: BP 120/65; PULSE 92; RESP 16; TEMP 36.5; O2SAT 100; BMI 29.7
[2024-08-12 13:21] LABS: MANUAL DIFF FLAG NO
[2024-08-12 13:22] LABS: Basophils Absolute Auto 0.1 X10*3/uL (0.0-0.2); Basophils Percent Auto 0.5 % (0-2); Eosinophils Absolute Auto 0.2 X10*3/uL (0.0-0.4); Eosinophils Percent Auto 1.5 % (0-4); Hematocrit 41.4 % (37.0-47.0); Hemoglobin 13.4 g/dl (12.0-16.0); Imm Gran Abs Auto 0.05 X10*3/uL (0.00-0.03); Imm Gran Pct Auto 0.4 % (0.0-0.4); Lymphocytes Absolute Auto 2.1 X10*3/uL (1.2-4.9); Lymphocytes Percent Auto 18.5 % (20-40); Mean Corpuscular HGB Conc 32.4 g/dl (31.0-35.0); Mean Corpuscular Hemoglobin 24.8 pg (27.0-33.0); Mean Corpuscular Volume 76.7 fL (80.0-98.0); Mean Platelet Volume 10.5 fL (9.4-12.3); Monocytes Absolute Auto 0.9 X10*3/uL (0.1-1.2); Monocytes Percent Auto 7.7 % (2-11); Neutrophils Percent Auto 71.4 % (45-73); Platelet Count 234 X10*3/uL (160-400); Red Cell Distribution Width 14.9 % (11.0-16.0); White Blood Count 11.2 X10*3/uL (4.8-10.8)
[2024-08-12 13:24] LABS: Appearance Urine Cloudy; Color Urine Yellow; Glucose Urine UA Negative (Negative); Leukocyte Esterase Urine Large (3+) (Negative); Nitrite Urine Positive (Negative); PH 6.5 (5.0-9.0); UMIC TRIGGER UACC YES; Urine Blood Trace (Negative); Urine Ketones Negative (Negative); Urine Protein Negative (Neg-Trace)
[2024-08-12 13:27] LABS: Bacteria Urine 4+ (None Seen); Hyaline Casts Urine 0-2 /LPF (0-2); Squamous Epithelial Cell Urine 0-2 /HPF (0-2); UACC Culture Trigger YES; WBC Urine >50 /HPF (0-5)
[2024-08-12 13:44] LABS: Alanine Aminotransferase 11 U/L (0-31); Alkaline Phosphatase 57 U/L (39-117); Anion Gap 9 (12-20); Aspartate Amino Transferase 15 U/L (5-31); Bilirubin Direct 0.3 mg/dL (0.0-0.5); Bilirubin Total 1.1 mg/dL (0.0-1.0); Blood Urea Nitrogen 12 mg/dL (9-16); Calcium 9.2 mg/dL (8.4-10.2); Carbon Dioxide 25 mmol/L (22-29); Chloride 110 mmol/L (96-108); Creatinine Clr Calc Pharmacy 96.1; Estimated Glomerular Filt Rate > 60; Glucose Random 93 mg/dL (60-115); HCG Quantitative < 2 mIU/mL; Lipase 17 U/L (8-78); Magnesium 2.1 mg/dL (1.6-2.6); Potassium 4.1 mmol/L (3.3-5.1); Sodium 140 mmol/L (135-145); Total Protein 7.6 g/dL (6.5-8.0)
[2024-08-12 19:16] VITALS: BP 111/63; PULSE 75; RESP 17; TEMP 36.6; O2SAT 100
[2024-08-12] MEDS: Phenazopyridine HCL 200 MG TABLET PO (19:23)
[2024-08-12] MEDS: Metoclopramide HCl 10 MG TABLET PO (19:24)
[2024-08-12] MEDS: cefuroxime axetiL 250 MG TABLET PO (19:24)
[2024-08-12 19:30] VITALS: BP 111/63; PULSE 75; RESP 17; TEMP 36.6; O2SAT 100
== END 2024-08-12 19:30 | disposition home or self-care (01) ==
PROVIDERS: Emergency Medicine; Emergency Provider Emergency Medicine Emergency Medical Services; PCP Internal Medicine
DX: N39.0 Urinary tract infection, site not specified (principal); R11.2 Nausea with vomiting, unspecified; R32 Unspecified urinary incontinence; L29.89 Other pruritus; N64.4 Mastodynia; R35.0 Frequency of micturition; Z87.891 Personal history of nicotine dependence; Z79.899 Other long term (current) drug therapy
CPT/HCPCS: 36415; 80048; 80076; 81001; 83690; 83735; 84702; 85025; 87086; 87088; 87186; 99283; 99284

== ENCOUNTER 2024-10-19 09:56 | Emergency (ER) | payer OTHER, SELFPAY ==
--- NOTE | ~2024-10-19 | XR_ITS ---
CLINICAL HISTORY: cough 2 view chest x-ray. Comparison: None Findings: The lungs are adequately expanded. No focal consolidation. No effusion or pneumothorax. Cardiac and mediastinal contours are within normal limits. No acute osseous abnormality Impression: No acute process. This document has been electronically signed by: Mayur Cisneros MD on 10/19/2024 10:43:36
[2024-10-19 10:00] VITALS: BP 127/70; PULSE 90; RESP 19; TEMP 36.6; O2SAT 99; BMI 30.5
--- NOTE | 2024-10-19 10:26 | ED_ITS ---
HPI - URI/Sore Throat General Chief Complaint: Upper Respiratory Symptoms Stated Complaint: cough Time Seen by Provider: 10/19/24 10:11 Source: patient and old records reviewed Mode of arrival: ambulatory Limitations: no limitations History of Present Illness ED Provider: GALDINO MONDRAGON Narrative: 39 yo female with PMH of anxiety, anemia, depression, allergic rhinitis, asthma as a child who presents with 6 days of cough, chest congestion, runny nose x 6 days. No fevers, no n/v/d. She has no pain or dyspnea. She notes she is eating soup as everything else tastes weird. No chest pain. She has not traveled, stayed in a hotel, she has no sick contacts. She states sputum was initially light brown now it is yellow. MD elicited complaint: cough, rhinorrhea and nasal congestion Pertinent past history: asthma Onset (ago): day(s) (6) Consistency: constant Severity: moderate Description of mucous: yellow Able to tolerate fluids by mouth: Yes Exacerbating factors: other (coughing) Relieving factors: OTC cold medicine Associated symptoms: nasal congestion and cough Treatments prior to arrival: cold medicine Related Data Previous Rx's ?Medication ?Instructions ?Recorded hydroxyzine pamoate 25 mg capsule 25 mg PO Q8H 30 days #90 caps 11/13/20 bacitracin 500 unit/gram topical 1 appl topical BID #30 grams 11/21/23 ointment acetaminophen 500 mg tablet 500 mg PO Q6H PRN pain 30 days 06/16/24 #120 tabs cefuroxime axetil 250 mg tablet 250 mg PO Q12H 5 days #10 tabs 08/12/24 metoclopramide HCl 10 mg tablet 10 mg PO Q6H PRN nausea and 08/12/24 (Reglan) vomiting #14 tabs phenazopyridine 200 mg tablet 200 mg PO TID PRN Burning with 08/12/24 (Pyridium) urination 3 days #9 tabs azithromycin 250 mg tablet See Rx Instructions PO .COMPLEX #6 10/19/24 tabs cetirizine 10 mg tablet 10 mg PO DAILY PRN allergy 10/19/24 symptoms #30 tabs fluticasone propionate 50 1 spray intranasal DAILY PRN 10/19/24 mcg/actuation nasal allergies #16 grams spray,suspension Allergies Allergy/AdvReac Type Severity Reaction Status Date / Time aspirin [ASPIRIN] Allergy Intermediate THROAT Verified 10/19/24 10:01 CLOSES, RASH ibuprofen [From MOTRIN] Allergy Intermediate THROAT Verified 10/19/24 10:01 CLOSES, RASH mushroom [MUSHROOM] Allergy Intermediate rash Verified 10/19/24 10:01 seafood Allergy Intermediate throat/facial Verified 10/19/24 10:01 swelling-difficulty breathing tramadol Allergy Intermediate Rash Verified 10/19/24 10:01 Review of Systems Review of Systems: Constitutional : No Fever, No Chills ENT/Mouth : No Hoarseness, No sore throat, pos Rhinorrhea Eyes: No Redness, No Discharge, No Vision Changes Cardiovascular : No Chest Pain, no SOB Respiratory : positive Cough, pos Sputum, positive Wheezing, Gastrointestinal : No Nausea, No Vomiting, No Diarrhea, No abdominal Pain Genitourinary : No Dysuria, No Hematuria Musculoskeletal : No joint pain, No Myalgias Skin : No rash Neuro : No Weakness, No Numbness, No Headache All other systems reviewed and are negative [facility] Past Medical History Attestation statement: The following information was validated with the patient. Source: old records reviewed Medical History STEVE (generalized anxiety disorder) Mild recurrent major depression Physical exam Anxiety and depression Anemia Obese Allergic rhinitis Insomnia Depression with anxiety Surgical History Hx laparoscopic cholecystectomy Previous section Family History Family History Father Arthritis History of bowel disorder Hypertension Asthma Mother Hemorrhoids Hypertension Asthma Maternal Grandfather Asthma Diabetes Paternal Grandmother Asthma Diabetes Fibromyalgia Paternal Aunt Migraine Brother In good health Sister In good health Social History Social History Housing: Apartment Alcohol intake: never Patient Tobacco Use Status: Former Tobacco user Tobacco use type: Cigarette Cigarettes Per Day: 6 e-Cigarette/Vaping Use: Never Used Second Hand Smoke Exposure: No Advance Directives: No Advance Directives Information Provided: No Do you have a plan to hurt others: No Plan service: No Current occupational status: employed Current occupational exposures/hazards: No Cognitive needs: No Hearing needs: No Vision needs: Yes Physical Exam Vital Signs: Vital Signs: Last Vital Signs Temp 98 F 10/19/24 10:00 Pulse 90 10/19/24 10:00 Resp 19 10/19/24 10:00 BP 127/70 10/19/24 10:00 Pulse Ox 96 10/19/24 10:39 O2 Del Method Room Air 10/19/24 10:39 BMI result Body Mass Index 30.5 Appearance: Alert. Oriented X3. No acute distress. Eyes: Pupils equal, round and reactive to light. ENT: Pharynx normal. TMs normal bilaterally, clear nasal secretions noted both nares Neck: Normal inspection. Neck supple. CVS: Normal heart rate and rhythm. Pulses normal. Respiratory: No respiratory distress. Breath sounds slightly diminished with rhonchi Abdomen: Soft and nontender. Skin: Skin warm and dry. Normal skin color. Normal skin turgor. Extremities: No lower extremity edema. No calf ttp Neuro: Oriented X 3. No motor deficit. No sensory deficit. CN2-12 intact Medications Administered Discontinued Medications Generic Name Dose Route Start Last Admin Trade Name Freq PRN Reason Stop Dose Admin Dexamethasone Sodium Phosphate 8 mg 10/19/24 10:25 10/19/24 10:30 Dexamethasone Sod Phosphate 4 Mg/Ml Vial PO 10/19/24 10:26 8 mg ONCE ONE Administration Medical Decision Making Medical Decision Making [facility] Narrative: 39 yo female with PMH of anxiety, anemia, depression, allergic rhinitis, asthma here with cough, congestion x 6 days but no URI risk factors on exam she has some rhonchi but no work of breathing and normal VS - will obtain viral panel, CXR and start on INH for rescue and dose dexamethasone. Anticipate azithromycin for bronchitis Differential Diagnosis Differential Diagnoses: The differential diagnosis associated with the presentation includes URI, bronchitis, pneumonia Admission/Observation Consideration of admission/observation: Escalation of care including admission/observation considered VS stable can be managed as outpatient Lab Data [facility] Lab Attestation statement: I reviewed the patient's lab results. Labs: Lab Results 10/19/24 Range/Units 10:06 Influenza Type A (PCR) NEGATIVE (Negative) Influenza Type B (PCR) NEGATIVE (Negative) RSV RNA Qual (PCR) NEGATIVE (Negative) SARS-CoV-2 RNA (RT-PCR) NEGATIVE (Negative) Independent Interpretation I performed an independent interpretation of an: Plain X-Ray (normal ) Radiology Impression Discussion of test interpretation with radiology: I have reviewed the radiologist's reading. External Record Review External record reviewed: Outpatient record Prescription Management I considered prescription management with: Antibiotic and Other Discharge Plan Discharge Clinical Impression: Bronchitis Patient Disposition: Home, Self-Care Instructions: Acute Bronchitis (ED) Additional Instructions: chest xray normal negative for covid, flu, rsv take inhaler every 2 hours as needed continue to take cough medications rest and stay hydrated return for any worsening symptoms or concerns. Prescriptions: New azithromycin 250 mg tablet See Rx Instructions .ROUTE .COMPLEX Qty: 6 0RF Rx Instructions: For 250 mg dose pack: take 500 mg today (day 1), then 250 mg for 4 days (days 2-5) fluticasone propionate 50 mcg/actuation spray,suspension 1 spray intranasal DAILY PRN (Reason: allergies) Qty: 16 0RF Rx Instructions: administer into each nostril cetirizine 10 mg tablet 10 mg PO DAILY PRN (Reason: allergy symptoms) Qty: 30 1RF No Action hydroxyzine pamoate 25 mg capsule 25 mg PO Q8H 30 Days Qty: 90 2RF cefuroxime axetil 250 mg tablet 250 mg PO Q12H 5 Days Qty: 10 0RF phenazopyridine [Pyridium] 200 mg tablet 200 mg PO TID PRN (Reason: Burning with urination) 3 Days Qty: 9 0RF metoclopramide HCl [Reglan] 10 mg tablet 10 mg PO Q6H PRN (Reason: nausea and vomiting) Qty: 14 0RF bacitracin 500 unit/gram ointment 1 appl topical BID Qty: 30 0RF acetaminophen 500 mg tablet 500 mg PO Q6H PRN (Reason: pain) 30 Days Qty: 120 1RF Print Language: Hungarian
[2024-10-19] MEDS: dexAMETHasone sod phosphate 4 MG/ML VIAL 8 MG PO (10:30)
[2024-10-19 10:39] VITALS: O2SAT 96
[2024-10-19 11:00] LABS: Influenza A PCR NEGATIVE (Negative); Influenza B PCR NEGATIVE (Negative); Resp Syncy Virus RNA Qual PCR NEGATIVE (Negative); SARS COV2 PCR INHOUSE NEGATIVE (Negative)
[2024-10-19] MEDS: Albuterol Sulfate 90 MCG 8 GM INHALER 2 PUFF INHALE (11:02)
[2024-10-19 11:03] VITALS: PULSE 90; RESP 19; O2SAT 97
[2024-10-19 11:17] VITALS: BP 115/76; PULSE 83; RESP 16; TEMP 36.9; O2SAT 99
[2024-10-19 11:27] VITALS: BP 115/76; PULSE 83; RESP 16; TEMP 36.9; O2SAT 99
== END 2024-10-19 11:28 | disposition home or self-care (01) ==
PROVIDERS: Emergency Provider Emergency Medicine; PCP Internal Medicine
DX: J40 Bronchitis, not specified as acute or chronic (principal); R05.9 Cough, unspecified; Z03.818 Encounter for observation for suspected exposure to other biological agents ruled out
CPT/HCPCS: 0241U; 71046; 94640; 94664; 99284; 99285; J1100

== ENCOUNTER → 2024-10-19 10:11 | Outpatient (BNV) | payer OTHER, SELFPAY | PROVIDERS: Emergency Provider Emergency Medicine; PCP Internal Medicine; Visit Provider Radiology Vascular & Interventional Radiology | DX: R05.9 Cough, unspecified (principal) | CPT/HCPCS: 71046 ==

== ENCOUNTER 2024-12-08 15:49 | Outpatient (REF) | payer OTHER, SELFPAY ==
[2024-12-11 11:58] LABS: TS Negative Control Passed; TS Panel A 0; TS Panel B 0; TS Positive Control Passed; TSpotTB Negative (Negative)
== END 2024-12-08 15:50 | disposition home or self-care (01) ==
LOC: HO.LAB 15:49
PROVIDERS: PCP Internal Medicine; Visit Provider Internal Medicine
DX: Z11.1 Encounter for screening for respiratory tuberculosis (principal)
CPT/HCPCS: 36415; 86481